=== PATIENT | female | born 1945 | race African-American/Black ===

== ENCOUNTER 2016-11-21 12:24 | Emergency (ER) | payer OTHER ==
[2016-11-21 12:35] VITALS: BP 165/84; PULSE 69; TEMP 98.3; BMI 32.1
[2016-11-21] MEDS ORDERED: ACETAMINOPHEN 500 MG TABLET (FP) PO ONE (13:19)
[2016-11-21] MEDS ORDERED: ACETAMINOPHEN 500 MG TABLET (FP) ONE (13:21)
--- NOTE | 2016-11-21 14:00 | PDOC ---
History of Present Illness - General Chief Complaint: Injury Stated Complaint: FALL/ RT KNEE PAIN Time Seen by Provider: 11/21/16 12:58 History Source: Patient Exam Limitations: No Limitations - History of Present Illness Initial Comments: 11/21/16 13:57 71 yr female tripped going into [facility] landed on her right knee. Pt taking ASA and plavix. No dizzyness or head trauma. Loss of Consciousness: no loss of consciousness Past History - Past Medical History Allergies/Adverse Reactions: Allergies Allergy/AdvReac Type Severity Reaction Status Date / Time No Known Drug Allergies Allergy Mild Verified 11/21/16 12:35 Home Medications: Ambulatory Orders Aspirin [ASA -] 81 mg PO HS 10/16/15 Cholecalciferol (Vitamin D3) [Vitamin D3] 1,000 unit PO BID 10/16/15 Clopidogrel Bisulfate [Plavix -] 75 mg PO DAILY 10/16/15 Cyanocobalamin [Vitamin B12 -] 2,000 mcg PO AM 10/16/15 Duloxetine HCl [Cymbalta] 120 mg PO DAILY 10/16/15 Folic Acid 1 mg PO DAILY 10/16/15 Isosorbide Mononitrate [Imdur -] 30 mg PO DAILY 10/16/15 Non-Formulary 20 units SQ DAILY 10/16/15 Olmesartan/Hydrochlorothiazide [Benicar Hct 40-12.5 mg Tablet] 1 each PO DAILY 10/16/15 Phenobarbital 60 mg PO BID 10/16/15 Prednisone 10 mg PO DAILY 10/16/15 Ezetimibe [Zetia] 10 mg PO HS 05/12/16 Insulin Glargine,Hum.rec.anlog [Grehard Goddard] 20 unit SQ DAILY 05/12/16 Metformin HCl [Metformin HCl ER] 1,000 mg PO BID 05/13/16 Metoprolol Succinate [Toprol Xl -] 50 mg PO DAILY 05/13/16 Tramadol HCl 50 mg PO PRN PRN 05/13/16 Acetaminophen W/ Codeine #3 [Tylenol # 3 -] 1 - 2 tab PO Q6H PRN #12 tablet MDD 6 11/21/16 Phenytoin Na Extended [Dilantin -] 100 mg PO DAILY 11/21/16 Anemia: Yes (YEARS AGO) Asthma: No Cancer: No Cardiac Disorders: Yes CVA: No COPD: No CHF: No Dementia: No Diabetes: Yes GI Disorders: No Disorders: No HTN: Yes Hypercholesterolemia: Yes Liver Disease: No Seizures: Yes Thyroid Disease: No Other medical history: POLYMYOCITIS - Surgical History Abdominal Surgery: No Appendectomy: No Cardiac Surgery: Yes (CABG X5 2001,1 STENT 2004) Cholecystectomy: No Lung Surgery: No Neurologic Surgery: No Orthopedic Surgery: Yes (2008 RIGHT SHOULDER FX-IMMOBILIZED) - Psycho/Social/Smoking Cessation Hx Anxiety: No Suicidal Ideation: No Smoking History: Never smoked Have you smoked in the past 12 months: No If you are a former smoker, when did you quit?: 2002 Hx Alcohol Use: No Drug/Substance Use Hx: No Substance Use Type: None Hx Substance Use Treatment: No *Physical Exam - Vital Signs Last Vital Signs Temp Pulse Resp BP Pulse Ox 98.3 F 69 18 165/84 96 11/21/16 12:31 11/21/16 12:31 11/21/16 12:31 11/21/16 12:31 11/21/16 12:31 - Physical Exam General Appearance: Yes: Nourished, Appropriately Dressed HEENT: positive: EOMI, ADAIR Respiratory/Chest: positive: Lungs Clear, Normal Breath Sounds Cardiovascular: positive: Regular Rhythm, Regular Rate Extremity: positive: Normal Capillary Refill, Normal Range of Motion (pt is able to raise right leg off bed more than 4 inches , pain with full extension ) , Tender, Swelling, Inflammation (right knee), Other (limited ROM due to pain and swelling, nv intact ) Integumentary: positive: Normal Color, Dry, Warm Neurologic: positive: Fully Oriented, Alert, Normal Mood/Affect, Normal Response , Motor Strength 5/5 Procedures - Splinting Pre-Made Type: knee immobilizer (right) ED Treatment Course - RADIOLOGY Radiology Studies Ordered: Category Date Time Status KNEE 3 POS-RIGHT [RAD] Stat Radiology 11/21/16 13:15 Completed - Medications Given in the ED: ED Medications Discontinued Medications Generic Name Dose Route Start Last Admin Trade Name Freq PRN Reason Stop Dose Admin Acetaminophen 1,000 mg 11/21/16 13:19 11/21/16 13:38 Tylenol - PO 11/21/16 13:20 1,000 mg ONCE ONE Administration Medical Decision Making - Medical Decision Making 11/21/16 13:59 cc: trip and fall landed on right knee swelling, tenderness ice pack applied and tylenol given (pt took aleve prior to arrival) 11/21/16 14:34 patellar fracture noted with joint effusion non displaced pt placed in knee immobilizer at full extension pt and her have a hove around wheelchair at home that she will use. they also have no steps that pt has to use. pt will follow with her orthopedist she will call tomorrow and see him in 1-3 days pain meds sent to pharmacy I have given explicit verbal instructions for follow up. pt and her understand the plan of care and agree. *DC/Admit/Observation/Transfer Diagnosis at time of Disposition: Patellar fracture Qualifiers: Encounter type: initial encounter Fracture type: closed Fracture morphology: unspecified fracture morphology Fracture alignment: nondisplaced Laterality: right Qualified Code(s): S82.001A - Unspecified fracture of right patella, initial encounter for closed fracture - Discharge Dispostion Disposition: HOME Condition at time of disposition: Fair - Prescriptions Prescriptions: Acetaminophen W/ Codeine #3 [Tylenol # 3 -] 1 - 2 tab PO Q6H PRN #12 tablet MDD 6 PRN Reason: Severe Pain - Referrals Referrals: Titus Hameed MD [Primary Care Provider] - Fidencio Johnson MD [Staff Physician] - - Patient Instructions Additional Instructions: call your orthopedist tomorrow morning to make appointment for this week keep the immobilizer on at all times elevate the leg above level of your heart and apply ice every 2hrs for 20 minutes while awake for the next 2-3 days keep pillows propped under the leg to help with pain and swelling take tylenol #3 for moderate to severe pain TAKE WITH FOOD MAY MAKE YOU NAUSEAS OR DIZZY DO NOT DRIVE DRINK ALCOHOL do not put weight on the right leg return to ER for any worsening symptoms
== END 2016-11-21 14:19 | disposition home or self-care (01) ==
LOC: JERFT 12:24
PROC: 2W3LXYZ Immobilization of Right Lower Extremity using Other Device (ICD-10-PCS; principal; 2016-11-21)
DX: S82.091A Other fracture of right patella, initial encounter for closed fracture (principal); M25.461 Effusion, right knee; I25.10 Atherosclerotic heart disease of native coronary artery without angina pectoris; I10 Essential (primary) hypertension; Z95.1 Presence of aortocoronary bypass graft; Z95.5 Presence of coronary angioplasty implant and graft; E11.9 Type 2 diabetes mellitus without complications; Z79.4 Long term (current) use of insulin; Z79.84 Long term (current) use of oral hypoglycemic drugs; E78.00 Pure hypercholesterolemia, unspecified; G40.909 Epilepsy, unspecified, not intractable, without status epilepticus
CPT/HCPCS: 29530; 73562-TC-RT; 99281-25

== ENCOUNTER 2016-12-16 12:24 | Inpatient (IN) | payer OTHER ==
[2016-12-16] MEDS ORDERED: SODIUM CHLORIDE 1,000 ML IV STA ×2 (12:52→15:24)
[2016-12-16] MEDS ORDERED: ONDANSETRON 4 MG/2 ML VIAL IVPUSH ONE (12:52)
--- NOTE | 2016-12-16 13:00 | PDOC ---
History of Present Illness - General Chief Complaint: Nausea/Vomiting Stated Complaint: Nausea/Vomiting Time Seen by Provider: 12/16/16 12:34 History Source: Patient Exam Limitations: No Limitations - History of Present Illness Initial Comments: 12/16/16 12:53 71-year-old female presents to the ED with complaints of nausea vomiting and abdominal pain intermittently for the past 2 weeks. Patient states generalized abdominal pain which she describes a burning sensation. Patient also states has had some loose bowel movements in between which she describes as brown watery without blood. Patient states had urinary tract infection a few weeks ago and also recently sustained of right patellar fracture along with left elbow fracture which is currently in a splint for. Patient denies chest pain, shortness of breath, fever, chills, dysuria, or hematuria. Timing/Duration: reports: intermittent Quality: reports: moderate, burning Abdominal Pain Onset Location: reports: generalized abdomen Pain Radiation: reports: no radiation Activities at Onset: reports: none Aggravating Factors: improves with: None Alleviating Factors: improves with: None Past History - Travel Traveled outside of the country in the last 30 days: No Close contact w/someone who was outside of country & ill: No - Past Medical History Allergies/Adverse Reactions: Allergies Allergy/AdvReac Type Severity Reaction Status Date / Time No Known Drug Allergies Allergy Mild Verified 12/16/16 12:29 Home Medications: Ambulatory Orders Aspirin [ASA -] 81 mg PO HS 10/16/15 Cholecalciferol (Vitamin D3) [Vitamin D3] 1,000 unit PO BID 10/16/15 Clopidogrel Bisulfate [Plavix -] 75 mg PO DAILY 10/16/15 Cyanocobalamin [Vitamin B12 -] 2,000 mcg PO AM 10/16/15 Duloxetine HCl [Cymbalta] 120 mg PO DAILY 10/16/15 Folic Acid 1 mg PO DAILY 10/16/15 Isosorbide Mononitrate [Imdur -] 30 mg PO DAILY 10/16/15 Phenobarbital 60 mg PO BID 10/16/15 Ezetimibe [Zetia] 10 mg PO HS 05/12/16 Insulin Glargine,Hum.rec.anlog [Toujeo Solostar] 20 unit SQ DAILY 05/12/16 Metoprolol Succinate [Toprol XL -] 50 mg PO DAILY 05/13/16 Acetaminophen [Tylenol .Regular Strength -] 650 mg PO Q4H PRN #0 tablet Cephalexin [Keflex] 500 mg PO BID 2 Days 12/20/16 Enoxaparin [Lovenox -] 40 mg SQ DAILY syringe 12/20/16 Lactobacillus Acidophilus [Bacid -] 1 tab PO DAILY tab 12/20/16 Pantoprazole Sodium [Protonix -] 40 mg PO DAILY tab.ec 12/20/16 Phenytoin Na Extended [Dilantin -] 200 mg PO BID cap 12/20/16 Prednisone [Deltasone -] 15 mg PO DAILY tablet 12/20/16 Anemia: Yes (YEARS AGO) Asthma: No Cancer: No Cardiac Disorders: Yes CVA: No COPD: No CHF: No Dementia: No Diabetes: Yes GI Disorders: No Disorders: No HTN: Yes Hypercholesterolemia: Yes Liver Disease: No Seizures: Yes Thyroid Disease: No - Surgical History Abdominal Surgery: No Appendectomy: No Cardiac Surgery: Yes (CABG X5 2001,1 STENT 2004) Cholecystectomy: No Lung Surgery: No Neurologic Surgery: No Orthopedic Surgery: Yes (2007 RIGHT SHOULDER FX-IMMOBILIZED) - Psycho/Social/Smoking Cessation Hx Anxiety: No Suicidal Ideation: No Smoking History: Never smoked Have you smoked in the past 12 months: No If you are a former smoker, when did you quit?: 2002 Hx Alcohol Use: No Drug/Substance Use Hx: No Substance Use Type: None Hx Substance Use Treatment: No Patient Lives Alone: No Lives with/in: senior care (Rehabilitation \) Review of Systems - Review of Systems Able to Perform ROS?: Yes Constitutional: No: Symptoms Reported HEENTM: No: Symptoms Reported Respiratory: No: Symptoms reported Cardiac (ROS): No: Symptoms Reported ABD/GI: Yes: Diarrhea, Nausea, Vomiting, Abdominal cramping : No: Symptoms Reported Musculoskeletal: No: Symptoms Reported Integumentary: No: Symptoms Reported Neurological: No: Symptoms reported Endocrine: No: Symptoms Reported Hematologic/Lymphatic: No: Symptoms Reported *Physical Exam - Vital Signs Last Vital Signs Temp Pulse Resp BP Pulse Ox 98.0 F 75 18 117/69 12/16/16 12:30 12/16/16 12:30 12/16/16 12:30 12/16/16 12:30 - Physical Exam General Appearance: Yes: Nourished, Appropriately Dressed. No: Apparent Distress HEENT: positive: EOMI, ADAIR, Pharynx Normal. negative: Pale Conjunctivae Neck: positive: Supple Respiratory/Chest: positive: Lungs Clear, Normal Breath Sounds. negative: Respiratory Distress, Accessory Muscle Use Cardiovascular: positive: Regular Rhythm, Regular Rate. negative: Murmur Gastrointestinal/Abdominal: positive: Normal Bowel Sounds, Soft, Distended ( slightly), Tenderness (mild generalized). negative: Guarding, Rebound Musculoskeletal: negative: CVA Tenderness Extremity: positive: Normal Capillary Refill. negative: Normal Inspection ( patient with right knee immobilizer and long-arm splint to the left arm), Pedal Edema Integumentary: positive: Normal Color, Warm, Moist Neurologic: positive: Normal Mood/Affect Heart Score/ECG Review - History History: Slightly suspicious - Electrocardiogram EKG: Normal - Age Age: >/= 65 - Risk Factors Based on the list above the patient has:: 1-2 risk factors - Troponin Troponin: </= normal limit - Score Heart Score - Total: 3 - ECG Intrepretation Rhythm: Regular Rhythm (67.) ED Treatment Course - LABORATORY CBC & Chemistry Diagram: 12/20/16 05:35 12/20/16 05:35 - RADIOLOGY Radiology Studies Ordered: Category Date Time Status KUB (KID UR & BLAD) [RAD] Stat Radiology 12/16/16 12:52 Ordered Medical Decision Making - Medical Decision Making 12/16/16 13:04 Patient with recent UTI and fracture to the left elbow and right knee presenting today with nausea vomiting generalized abdominal pain and diarrhea. Patient concerning for electrolyte imbalance versus starvation ketoacidosis versus UTI. Patient ordered for labs, urine, x-ray, EKG fluids and Zofran 12/16/16 15:15 Unable to obtain a peripheral IV. A right IJ was placed and the patient using ultrasound guided technique by Dr. Steve Franco. 12/16/16 15:46 Laboratory Tests 12/16/16 14:05 Sodium 128 L Potassium 5.1 D Chloride 90 L D BUN 19 H D Creatinine 0.5 L Creat Clearance w eGFR > 60 Random Glucose 113 H Calcium 8.9 Magnesium 2.6 H Total Bilirubin 0.4 D AST 87 H D ALT 81 H Alkaline Phosphatase 184 H D Troponin I 0.03 Acetone, Qual Pending Patient ordered for second bag of normal saline 1 L. Patient also ordered for an elbow x-ray and removed the long arm splint 12/16/16 18:42 Laboratory Tests 12/16/16 12/16/16 12/16/16 14:05 15:30 17:09 WBC 12.0 H D Hgb 12.1 D Hct 37.4 D Plt Count 400 D Neutrophils % 51.9 D Sodium 128 L Potassium 5.1 D Chloride 90 L D Carbon Dioxide 22 Anion Gap 16 BUN 19 H D Creatinine 0.5 L Creat Clearance w eGFR > 60 Random Glucose 113 H Calcium 8.9 Magnesium 2.6 H AST 87 H D ALT 81 H Alkaline Phosphatase 184 H D CK-MB (CK-2) 6.525 H Urine Ketones Negative Urine Blood 1+ H Ur Leukocyte Esterase Trace H Acetone, Qual Pending Elbow xray showed a healing left olecranon fx. Pt will be placed back in a long arm splint . Patient will be admitted to Dr. Fernandez to [facility] and consult will be placed to orthopedist national sales trainer Dr. Velez. KUB had no significant findings except for retained stool. Urine cx sent. 12/21/16 07:32 *DC/Admit/Observation/Transfer Diagnosis at time of Disposition: Hyponatremia, Weakness Nausea & vomiting Qualifiers: Vomiting Intractability: intractable - Discharge Dispostion Condition at time of disposition: Good Admit: Yes - Prescriptions
[2016-12-16] MEDS ORDERED: ONDANSETRON 4 MG/2 ML VIAL ONE (13:09)
--- NOTE | 2016-12-16 13:37 | PDOC ---
*Physical Exam - Vital Signs Last Vital Signs Temp Pulse Resp BP Pulse Ox 98.0 F 75 18 117/69 12/16/16 12:30 12/16/16 12:30 12/16/16 12:30 12/16/16 12:30 ED Treatment Course - LABORATORY CBC & Chemistry Diagram: 12/20/16 05:35 12/20/16 05:35 Medical Decision Making - Medical Decision Making 12/16/16 13:37 Pt seen by the Advanced Practice Provider under my direct supervision Ancillary studies reviewed I agree with plan as outlined by the Advanced Practice Provider BETHANY Banegas *DC/Admit/Observation/Transfer Diagnosis at time of Disposition: Hyponatremia, Weakness, Nausea & vomiting - Discharge Dispostion Disposition: SNF FACILITY Condition at time of disposition: Good - Prescriptions
[2016-12-16 14:45] LABS: ALBUMIN 3.4 g/dl (3.4-5.0); ANION GAP 16 (8-16); BILIRUBIN,TOTAL 0.4 mg/dL (0.2-1.0); CALCIUM 8.9 mg/dL (8.5-10.1); CO2 22 mmol/L (21-32); COCKROFT - GAULT 103.4535; CREATININE 0.5 mg/dL (0.55-1.02); GLUCOSE,RANDOM 113 mg/dL (74-106); SGPT/ALT 81 U/L (12-78); TOT PROT 7.9 g/dl (6.4-8.2)
[2016-12-16 14:47] LABS: ALK PHOS 184 U/L (45-117); TROPONIN I 0.03 ng/ml (0.00-0.05)
[2016-12-16 14:50] LABS: MAGNESIUM 2.6 mg/dL (1.8-2.4); SGOT/AST 87 U/L (15-37)
--- NOTE | 2016-12-16 15:37 | EKG ---
Test Reason : Blood Pressure : / mmHG Vent. Rate : 079 BPM Atrial Rate : 079 BPM P-R Int : 130 ms QRS Dur : 088 ms QT Int : 388 ms P-R-T Axes : 041 011 079 degrees QTc Int : 444 ms NORMAL SINUS RHYTHM NONSPECIFIC ST AND T WAVE ABNORMALITY ABNORMAL ECG WHEN COMPARED WITH ECG OF 16-OCT-2015 17:15, NO SIGNIFICANT CHANGE WAS FOUND Confirmed by KEELEY CLARK MD ([id number]) on 12/16/2016 3:37:03 PM Referred By: Confirmed By:KEELEY CLARK MD
[2016-12-16 16:45] LABS: BASOPHIL 0.2 % (0-2.0); EOSINOPHIL 0.8 % (0-4.5); MCH 29.6 pg (25.7-33.7); MCHC 32.5 g/dl (32.0-36.0); MEAN PLT VOLUME 8.3 fl (7.5-11.1); NEUTROPHILS 51.9 % (42.8-82.8); PLATELET COUNT 400 K/MM3 (134-434); RDW 14.4 % (11.6-15.6)
[2016-12-16 18:02] LABS: URINE APPEARANCE SLCLOUDY; URINE BILIRUBIN NEGATIVE (NEGATIVE); URINE COLOR YELLOW; URINE GLUCOSE (UA) NEGATIVE (NEGATIVE); URINE KETONE NEGATIVE (NEGATIVE); URINE NITRITE NEGATIVE (NEGATIVE); URINE PROTEIN NEGATIVE (NEGATIVE); URINE UROBILINOGEN NEGATIVE E.U./dl (0.2-1.0)
[2016-12-16 18:29] LABS: URINE BLOOD 1+ (NEGATIVE); URINE LEUK ESTERASE TRACE (NEGATIVE)
[2016-12-16 18:31] LABS: URINE BACTERIA RARE /hpf (NONE SEEN); URINE RBC 1 /hpf (0-3); URINE WBC 3 /hpf (3-5)
[2016-12-16 18:43] LABS: ACETONE SERUM NEGATIVE (NEGATIVE)
[2016-12-16] MEDS ORDERED: ACETAMINOPHEN 325 MG TABLET (FP) ONE (20:48)
[2016-12-16 23:51] VITALS: BMI 29.2
[2016-12-17] MEDS: INSULIN DETEMIR 100 UNITS/ML MDV SQ SCH (06:30)
[2016-12-17] MEDS: CYANOCOBALAMIN 1,000 MCG TABLET (FP) PO SCH (06:32)
[2016-12-17 08:04] LABS: ALBUMIN 3.4 g/dl (3.4-5.0); ANION GAP 12 (8-16); BILIRUBIN,TOTAL 0.3 mg/dL (0.2-1.0); CALCIUM 8.7 mg/dL (8.5-10.1); CO2 26 mmol/L (21-32); COCKROFT - GAULT 107.1935; CREATININE 0.5 mg/dL (0.55-1.02); GLUCOSE,RANDOM 124 mg/dL (74-106); SGOT/AST 54 U/L (15-37); SGPT/ALT 63 U/L (12-78)
[2016-12-17 08:05] LABS: ALK PHOS 170 U/L (45-117)
[2016-12-17] MEDS ORDERED: PHENYTOIN NA EXTENDED 100 MG CAPSULE (FP) PO SCH (10:00)
[2016-12-17] MEDS ORDERED: ACETAMINOPHEN 325 MG TABLET (FP) PO ONE (10:16)
[2016-12-17] MEDS: DULoxetine HCL 30 MG CAPSULE.DR (FP) PO SCH (10:32)
[2016-12-17] MEDS: CLOPIDOGREL BISULFATE 75 MG TABLET (FP) PO SCH (10:33)
[2016-12-17] MEDS: FOLIC ACID 1 MG TABLET (FP) PO SCH (10:33)
[2016-12-17] MEDS: ISOSORBIDE MONONITRATE 30 MG TAB.SR.24H (FP) PO SCH (10:33)
[2016-12-17] MEDS: CHOLECALCIFEROL (VITAMIN D3) 1,000 UNIT TABLET (FP) PO SCH ×2 (10:33→21:30)
[2016-12-17] MEDS: METOPROLOL SUCCINATE 50 MG TAB.SR.24H (FP) PO SCH (10:33)
[2016-12-17] MEDS: PHENobarbital 30 MG TABLET PO SCH ×2 (10:34→21:31)
--- NOTE | 2016-12-17 11:16 | CON.ORTH ---
Consult Reason for Consultation:: left elbow fx, right patella fx - Past Medical History SNIPPER: Yes: Seizure, TIA (s/p CABG then a stent) Cardio/Vascular: Yes: CAD, HTN, Hyperlipdemia, [place] Musculoskeletal: Yes: Osteoarthritis Rheumatology: Yes: Other (polymyositis) Endocrine: Yes: Diabetes Mellitus, Other (s/p benign skin excision) - Past Surgical History Past Surgical History: Yes: CABG, - Alcohol/Substance Use Hx Alcohol Use: No - Smoking History Smoking history: Never smoked Have you smoked in the past 12 months: No If you are a former smoker, when did you quit?: 2002 - Social History Usual Living Arrangement: With Spouse ADL: Family Assistance Occupation: former teacher History of Recent Travel: No Home Medications - Allergies Allergies/Adverse Reactions: Allergies Allergy/AdvReac Type Severity Reaction Status Date / Time No Known Drug Allergies Allergy Mild Verified 12/16/16 12:29 - Home Medications Home Medications: Ambulatory Orders Aspirin [ASA -] 81 mg PO HS 10/16/15 Cholecalciferol (Vitamin D3) [Vitamin D3] 1,000 unit PO BID 10/16/15 Clopidogrel Bisulfate [Plavix -] 75 mg PO DAILY 10/16/15 Cyanocobalamin [Vitamin B12 -] 2,000 mcg PO AM 10/16/15 Duloxetine HCl [Cymbalta] 120 mg PO DAILY 10/16/15 Folic Acid 1 mg PO DAILY 10/16/15 Isosorbide Mononitrate [Imdur -] 30 mg PO DAILY 10/16/15 Non-Formulary 20 units SQ DAILY 10/16/15 Olmesartan/Hydrochlorothiazide [Benicar Hct 40-12.5 mg Tablet] 1 each PO DAILY 10/16/15 Phenobarbital 60 mg PO BID 10/16/15 Prednisone 10 mg PO DAILY 10/16/15 Ezetimibe [Zetia] 10 mg PO HS 05/12/16 Insulin Glargine,Hum.rec.anlog [Todomitila Solostar] 20 unit SQ DAILY 05/12/16 Metformin HCl [Metformin HCl ER] 1,000 mg PO BID 05/13/16 Metoprolol Succinate [Toprol Xl -] 50 mg PO DAILY 05/13/16 Tramadol HCl 50 mg PO PRN PRN 05/13/16 Acetaminophen W/ Codeine #3 [Tylenol # 3 -] 1 - 2 tab PO Q6H PRN #12 tablet MDD 6 11/21/16 Phenytoin Na Extended [Dilantin -] 100 mg PO DAILY 11/21/16 Family Disease History - Family Disease History Family Disease History: Diabetes: Mother, Heart Disease: Father (renal failure, alcoholic cirrhosis), Mother Physical Exam for Ortho Vital Signs: Vital Signs Temperature 98 F 12/17/16 05:53 Pulse Rate 78 12/17/16 05:53 Respiratory Rate 20 12/17/16 05:53 Blood Pressure 140/52 12/17/16 05:53 O2 Sat by Pulse Oximetry (%) 99 12/16/16 22:27 Labs: CBC, BMP 12/17/16 06:25 - Upper Extremity Elbow: Yes: Left, Limited ROM, Pain, Swelling, Tenderness, Other (splint intact , nvi) - Lower Extremity Knee: Yes: Right, Limited ROM, Pain, Swelling, Tenderness, Other (knee immobilizer intact, nvi) Imaging - Results X-ray: Report Reviewed, Image Reviewed Assessment/Plan 1-year-old female presents to the ED with complaints of nausea vomiting and abdominal pain intermittently for the past 2 weeks. Patient states generalized abdominal pain which she describes a burning sensation. Patient also states has had some loose bowel movements in between which she describes as brown watery without blood. Patient states had urinary tract infection a few weeks ago and also recently sustained of right patellar fracture along with left elbow fracture which is currently in a splint for. Patient denies chest pain, shortness of breath, fever, chills, dysuria, or hematuria. Has been followed by Dr. Johnson for patella fx a/p right patella fx, left olecranon fx Patella fx- keep knee immobilizer PWB PT eval left olecranon fx will treat conservatively keep splint intact ABBY TOLEDO d/w Dr. Velez
--- NOTE | 2016-12-17 11:46 | HP ---
Admitting History and Physical - Primary Care Physician PCP: Titus Hameed - Admission Chief Complaint: I was really sick History of Present Illness: Ms Dawson is a very pleasant 71 female who came in from SNF for intractable nausea and vomiting. She was recently admitted to the SNF for rehabilitation secondary to a fall with knee and arm fracture (conservative management). While there she noted that some of the patients were complaining of abdominal pain and nausea. Soon after that she developed nausea/vomiting/diarrhea. She says she was unable to eat or drink anything because it would come right up. She described her stool as soupy at first but then became clear liquid with small amounts of stool. She says her emesis looked like anything she ate or drank and did not have blood in it. She did not note blood in her stool or melena. She continued to worsen so came in for further analysis. She denies fevers, chills, lightheadedness, dizziness, passing out, chest pain, shortness of breath, abdominal pain, difficulty or pain on urination, or leg swelling. Currently she says she is feeling good and is without complaint. History Source: Patient Limitations to Obtaining History: No Limitations - Past Medical History [employer]: Yes: Seizure, TIA (s/p CABG then a stent) Cardiovascular: Yes: CAD, HTN, Hyperlipdemia, [place] Musculoskeletal: Yes: Osteoarthritis Rheumatology: Yes: Other (polymyositis) Endocrine: Yes: Diabetes Mellitus, Other (s/p benign skin excision) - Past Surgical History Past Surgical History: Yes: CABG, - Smoking History Smoking history: Never smoked Have you smoked in the past 12 months: No If you are a former smoker, when did you quit?: 2002 - Alcohol/Substance Use Hx Alcohol Use: No History of Substance Use: reports: None - Social History Usual Living Arrangement: Yes: With Spouse, Fpc ADL: Family Assistance Occupation: former teacher History of Recent Travel: No Home Medications - Allergies Allergies/Adverse Reactions: Allergies Allergy/AdvReac Type Severity Reaction Status Date / Time No Known Drug Allergies Allergy Mild Verified 12/16/16 12:29 - Home Medications Home Medications: Ambulatory Orders Aspirin [ASA -] 81 mg PO HS 10/16/15 Cholecalciferol (Vitamin D3) [Vitamin D3] 1,000 unit PO BID 10/16/15 Clopidogrel Bisulfate [Plavix -] 75 mg PO DAILY 10/16/15 Cyanocobalamin [Vitamin B12 -] 2,000 mcg PO AM 10/16/15 Duloxetine HCl [Cymbalta] 120 mg PO DAILY 10/16/15 Folic Acid 1 mg PO DAILY 10/16/15 Isosorbide Mononitrate [Imdur -] 30 mg PO DAILY 10/16/15 Non-Formulary 20 units SQ DAILY 10/16/15 Olmesartan/Hydrochlorothiazide [Benicar Hct 40-12.5 mg Tablet] 1 each PO DAILY 10/16/15 Phenobarbital 60 mg PO BID 10/16/15 Prednisone 10 mg PO DAILY 10/16/15 Ezetimibe [Zetia] 10 mg PO HS 05/12/16 Insulin Glargine,Hum.rec.anlog [Toujeo Solostar] 20 unit SQ DAILY 05/12/16 Metformin HCl [Metformin HCl ER] 1,000 mg PO BID 05/13/16 Metoprolol Succinate [Toprol Xl -] 50 mg PO DAILY 05/13/16 Tramadol HCl 50 mg PO PRN PRN 05/13/16 Acetaminophen W/ Codeine #3 [Tylenol # 3 -] 1 - 2 tab PO Q6H PRN #12 tablet MDD 6 11/21/16 Phenytoin Na Extended [Dilantin -] 100 mg PO DAILY 11/21/16 Family Disease History - Family Disease History Family Disease History: Diabetes: Mother, Heart Disease: Father (renal failure, alcoholic cirrhosis), Mother Review of Systems Findings/Remarks: Full review of systems obtained, as per HPI and otherwise negative Physical Examination Vital Signs: Vital Signs Temperature 98 F 12/17/16 05:53 Pulse Rate 78 12/17/16 05:53 Respiratory Rate 20 12/17/16 05:53 Blood Pressure 140/52 12/17/16 05:53 O2 Sat by Pulse Oximetry (%) 99 12/16/16 22:27 Constitutional: Yes: Well Nourished, No Distress, Calm Eyes: Yes: Conjunctiva Clear, EOM Intact HENT: Yes: Atraumatic, Normocephalic Cardiovascular: Yes: Regular Rate and Rhythm. No: Gallop, Murmur, Rub Respiratory: Yes: Regular, CTA Bilaterally. No: Rales, Rhonchi, Wheezes Gastrointestinal: Yes: Normal Bowel Sounds, Soft. No: Distention, Tenderness Extremities: Yes: WNL Edema: No Labs: CBC, BMP 12/17/16 06:25 Imaging - Results X-ray: Report Reviewed, Image Reviewed Problem List - Problems (1) Hyponatremia Assessment/Plan: -cause of nausea and vomiting -suspect patient had gastroenteritis that caused this and hyponatremia further exacerbated symptoms -resolved with IVF -feeling back to baseline -recheck in am Code(s): E87.1 - HYPO-OSMOLALITY AND HYPONATREMIA (2) Gastroenteritis Assessment/Plan: -cause of original nausea/vomiting/diarrhea -resolved -on diabetic diet, monitor if tolerates Code(s): K52.9 - NONINFECTIVE GASTROENTERITIS AND COLITIS, UNSPECIFIED (3) Diabetes mellitus Assessment/Plan: -continue levemir -diabetic diet -FSBS and SSI Code(s): E11.9 - TYPE 2 DIABETES MELLITUS WITHOUT COMPLICATIONS (4) Patellar fracture Assessment/Plan: -appreciate ortho assistance -continue PT -place on lovenox for DVT PPx Code(s): S82.009A - UNSP FRACTURE OF UNSP PATELLA, INIT FOR CLOS FX Qualifiers : Encounter type: initial encounter Fracture type: closed Fracture morphology: unspecified fracture morphology Fracture alignment: nondisplaced Laterality: right Qualified Code(s): S82.001A - Unspecified fracture of right patella, initial encounter for closed fracture (5) Seizure Assessment/Plan: -continue dilantin Code(s): R56.9 - UNSPECIFIED CONVULSIONS (6) Closed olecranon fracture Assessment/Plan: -conservative management per ortho -PT Code(s): S52.023A - DISP FX OF OLECRAN PRO W/O INTARTIC EXTN UNSP ULNA, INIT (7) Polymyositis Assessment/Plan: -continue low dose prednisone Code(s): M33.20 - POLYMYOSITIS, ORGAN INVOLVEMENT UNSPECIFIED
[2016-12-17] MEDS: ENOXAPARIN NA (PORCINE) 40 MG/0.4 ML DISP.SYRIN SQ SCH (13:28)
[2016-12-17] MEDS: predniSONE 10 MG TABLET (UD) PO SCH (13:28)
[2016-12-17] MEDS ORDERED: INSULIN (NOVOLOG) ASPART 100 UNITS/ML 10ML VIAL ONE (15:54)
[2016-12-17] MEDS: INSULIN (NOVOLOG) ASPART 100 UNITS/ML 10ML VIAL SQ SCH ×2 (16:01→21:27)
[2016-12-17] MEDS: ACETAMINOPHEN 325 MG TABLET (FP) PO PRN (18:22)
[2016-12-17] MEDS: ASPIRIN 81 MG CHEWABLE TABLETS PO SCH (21:30)
[2016-12-17] MEDS: PHENYTOIN NA EXTENDED 100 MG CAPSULE (FP) PO SCH (21:31)
[2016-12-17] MEDS: EZETIMIBE 10 MG TABLET (FP) PO SCH (21:32)
[2016-12-18] MEDS: INSULIN DETEMIR 100 UNITS/ML MDV SQ SCH (06:21)
[2016-12-18] MEDS: INSULIN (NOVOLOG) ASPART 100 UNITS/ML 10ML VIAL SQ SCH ×3 (06:21→16:41)
[2016-12-18] MEDS: CYANOCOBALAMIN 1,000 MCG TABLET (FP) PO SCH (06:23)
[2016-12-18 07:14] LABS: BASOPHIL 0.7 % (0-2.0); EOSINOPHIL 1.5 % (0-4.5); MCH 30.6 pg (25.7-33.7); MCHC 33.9 g/dl (32.0-36.0); MEAN CELL VOLUME 90.4 fl (80-96); MEAN PLT VOLUME 7.7 fl (7.5-11.1); NEUTROPHILS 46.6 % (42.8-82.8); PLATELET COUNT 295 K/MM3 (134-434); RDW 14.5 % (11.6-15.6); WHITE BLOOD COUNT 7.9 K/mm3 (4.0-10.0)
[2016-12-18 08:47] LABS: CALCIUM 8.8 mg/dL (8.5-10.1); COCKROFT - GAULT 107.1935; CREATININE 0.5 mg/dL (0.55-1.02); PHOSPHOROUS 3.6 mg/dL (2.5-4.9)
[2016-12-18] MEDS: PHENYTOIN NA EXTENDED 100 MG CAPSULE (FP) PO SCH ×2 (09:28→21:20)
[2016-12-18] MEDS: ENOXAPARIN NA (PORCINE) 40 MG/0.4 ML DISP.SYRIN SQ SCH (09:28)
[2016-12-18] MEDS: CHOLECALCIFEROL (VITAMIN D3) 1,000 UNIT TABLET (FP) PO SCH ×2 (09:29→21:19)
[2016-12-18] MEDS: ISOSORBIDE MONONITRATE 30 MG TAB.SR.24H (FP) PO SCH (09:29)
[2016-12-18] MEDS: PHENobarbital 30 MG TABLET PO SCH ×2 (09:29→21:19)
[2016-12-18] MEDS: predniSONE 10 MG TABLET (UD) PO SCH (09:29)
[2016-12-18] MEDS: FOLIC ACID 1 MG TABLET (FP) PO SCH (09:29)
[2016-12-18] MEDS: METOPROLOL SUCCINATE 50 MG TAB.SR.24H (FP) PO SCH (09:30)
[2016-12-18] MEDS: CLOPIDOGREL BISULFATE 75 MG TABLET (FP) PO SCH (09:30)
[2016-12-18] MEDS: DULoxetine HCL 30 MG CAPSULE.DR (FP) PO SCH (09:31)
--- NOTE | 2016-12-18 11:22 | PN ---
Progress Note, Physician Chief Complaint: Ms Dawson complains of slight nausea but no vomiting. No cp or sob. - Current Medication List Current Medications: Active Medications Acetaminophen (Tylenol -) 650 mg PO Q4H PRN PRN Reason: FEVER OR PAIN Last Admin: 12/17/16 18:22 Dose: 650 mg Aspirin (Asa -) 81 mg PO HS [facility] Last Admin: 12/17/16 21:30 Dose: 81 mg Cholecalciferol (Vitamin D3 -) 1,000 unit PO BID [facility] Last Admin: 12/18/16 09:29 Dose: 1,000 unit Clopidogrel Bisulfate (Plavix -) 75 mg PO DAILY [facility] Last Admin: 12/18/16 09:30 Dose: 75 mg Cyanocobalamin (Vitamin B12 -) 2,000 mcg PO AM [facility] Last Admin: 12/18/16 06:23 Dose: 2,000 mcg Duloxetine HCl (Cymbalta -) 120 mg PO DAILY [facility] Last Admin: 12/18/16 09:31 Dose: 120 mg Ezetimibe (Zetia -) 10 mg PO HS [facility] Last Admin: 12/17/16 21:32 Dose: 10 mg Enoxaparin Sodium (Lovenox -) 40 mg SQ DAILY [facility] Last Admin: 12/18/16 09:28 Dose: 40 mg Folic Acid (Folic Acid -) 1 mg PO DAILY [facility] Last Admin: 12/18/16 09:29 Dose: 1 mg Ceftriaxone Sodium 1 gm/ (Dextrose) 50 mls @ 100 mls/hr IVPB DAILY [facility] Insulin Aspart (Novolog Vial) 1 units SQ ACHS [facility] PRN Reason: Protocol Last Admin: 12/18/16 06:21 Dose: Not Given Insulin Detemir (Levemir Vial) 20 units SQ DAILY@0700 [facility] Last Admin: 12/18/16 06:21 Dose: Not Given Isosorbide Mononitrate (Imdur -) 30 mg PO DAILY [facility] Last Admin: 12/18/16 09:29 Dose: 30 mg Lactobacillus Acidophilus (Bacid -) 1 tab PO DAILY [facility] Metoprolol Succinate (Toprol Xl -) 50 mg PO DAILY [facility] Last Admin: 12/18/16 09:30 Dose: 50 mg Phenobarbital (Phenobarbital -) 60 mg PO BID [facility] Last Admin: 12/18/16 09:29 Dose: 60 mg Phenytoin Sodium (Dilantin -) 200 mg PO BID [facility] Last Admin: 12/18/16 09:28 Dose: 200 mg Prednisone (Deltasone -) 15 mg PO DAILY [facility] Last Admin: 12/18/16 09:29 Dose: 15 mg - Objective Vital Signs: Vital Signs Temperature 98.4 F 12/18/16 09:26 Pulse Rate 69 12/18/16 09:26 Respiratory Rate 18 12/18/16 09:26 Blood Pressure 122/52 12/18/16 09:26 O2 Sat by Pulse Oximetry (%) 99 12/17/16 22:00 Constitutional: Yes: Well Nourished, No Distress, Calm Cardiovascular: Yes: Regular Rate and Rhythm. No: Gallop, Murmur, Rub Respiratory: Yes: Regular, CTA Bilaterally. No: Rales, Rhonchi, Wheezes Gastrointestinal: Yes: Normal Bowel Sounds, Soft. No: Distention, Tenderness Extremities: Yes: WNL Edema: No Labs: CBC, BMP 12/18/16 06:00 12/18/16 06:00 Problem List - Problems (1) Hyponatremia Code(s): E87.1 - HYPO-OSMOLALITY AND HYPONATREMIA (2) Gastroenteritis Code(s): K52.9 - NONINFECTIVE GASTROENTERITIS AND COLITIS, UNSPECIFIED (3) Diabetes mellitus Code(s): E11.9 - TYPE 2 DIABETES MELLITUS WITHOUT COMPLICATIONS (4) Patellar fracture Code(s): S82.009A - UNSP FRACTURE OF UNSP PATELLA, INIT FOR CLOS FX Qualifiers : Encounter type: initial encounter Fracture type: closed Fracture morphology: unspecified fracture morphology Fracture alignment: nondisplaced Laterality: right Qualified Code(s): S82.001A - Unspecified fracture of right patella, initial encounter for closed fracture (5) Seizure Code(s): R56.9 - UNSPECIFIED CONVULSIONS (6) Closed olecranon fracture Code(s): S52.023A - DISP FX OF OLECRAN PRO W/O INTARTIC EXTN UNSP ULNA, INIT (7) Polymyositis Code(s): M33.20 - POLYMYOSITIS, ORGAN INVOLVEMENT UNSPECIFIED Assessment/Plan (1) Hyponatremia Assessment/Plan: -resolved Code(s): E87.1 - HYPO-OSMOLALITY AND HYPONATREMIA (2) Gastroenteritis Assessment/Plan: -slight nausea but tolerating diet -prn zofran Code(s): K52.9 - NONINFECTIVE GASTROENTERITIS AND COLITIS, UNSPECIFIED (3) Diabetes mellitus Assessment/Plan: -continue levemir -diabetic diet -FSBS and SSI Code(s): E11.9 - TYPE 2 DIABETES MELLITUS WITHOUT COMPLICATIONS (4) Patellar fracture Assessment/Plan: -appreciate ortho assistance -continue PT -placed on lovenox for DVT PPx Code(s): S82.009A - UNSP FRACTURE OF UNSP PATELLA, INIT FOR CLOS FX Qualifiers : Encounter type: initial encounter Fracture type: closed Fracture morphology: unspecified fracture morphology Fracture alignment: nondisplaced Laterality: right Qualified Code(s): S82.001A - Unspecified fracture of right patella, initial encounter for closed fracture (5) Seizure Assessment/Plan: -continue dilantin Code(s): R56.9 - UNSPECIFIED CONVULSIONS (6) Closed olecranon fracture Assessment/Plan: -conservative management per ortho -PT Code(s): S52.023A - DISP FX OF OLECRAN PRO W/O INTARTIC EXTN UNSP ULNA, INIT (7) Polymyositis Assessment/Plan: -continue low dose prednisone Code(s): M33.20 - POLYMYOSITIS, ORGAN INVOLVEMENT UNSPECIFIED
[2016-12-18] MEDS ORDERED: ONDANSETRON 4 MG/2 ML VIAL IVPUSH PRN (11:31)
[2016-12-18] MEDS: CEFTRIAXONE 50 ML IVPB SCH (11:46)
[2016-12-18] MEDS: LACTOBACILLUS ACIDOPHILUS 1 EACH TAB (FP) PO SCH (11:47)
[2016-12-18] MEDS: INSULIN SLIDING SCALE (NOVOLOG) 1 VIAL SQ SCH ×2 (16:40→21:20)
[2016-12-18] MEDS ORDERED: PT OWN MED DRAWER 7, Y5N ONE (20:47)
[2016-12-18] MEDS ORDERED: INSULIN (NOVOLOG) ASPART 100 UNITS/ML 10ML VIAL ONE (21:17)
[2016-12-18] MEDS: ASPIRIN 81 MG CHEWABLE TABLETS PO SCH (21:19)
[2016-12-18] MEDS: EZETIMIBE 10 MG TABLET (FP) PO SCH (21:20)
--- NOTE | 2016-12-18 22:16 | PN ---
Progress Note (short form) - Note Progress Note: SPLINTS IN PLACE AND PATIENT COMFORTABLE WILL FOLLOW
[2016-12-19] MEDS: INSULIN DETEMIR 100 UNITS/ML MDV SQ SCH (06:37)
[2016-12-19] MEDS: INSULIN SLIDING SCALE (NOVOLOG) 1 VIAL SQ SCH ×4 (06:37→21:17)
[2016-12-19] MEDS: CYANOCOBALAMIN 1,000 MCG TABLET (FP) PO SCH (06:38)
[2016-12-19 08:51] LABS: CALCIUM 9.2 mg/dL (8.5-10.1); COCKROFT - GAULT 107.1935; CREATININE 0.5 mg/dL (0.55-1.02)
[2016-12-19 08:55] LABS: BASOPHIL 0.7 % (0-2.0); EOSINOPHIL 1.8 % (0-4.5); MCH 30.9 pg (25.7-33.7); MCHC 33.3 g/dl (32.0-36.0); MEAN CELL VOLUME 92.6 fl (80-96); NEUTROPHILS 37.5 % (42.8-82.8); PLATELET COUNT 275 K/MM3 (134-434); RDW 15.3 % (11.6-15.6); WHITE BLOOD COUNT 6.9 K/mm3 (4.0-10.0)
[2016-12-19] MEDS: ENOXAPARIN NA (PORCINE) 40 MG/0.4 ML DISP.SYRIN SQ SCH (09:09)
[2016-12-19] MEDS: FOLIC ACID 1 MG TABLET (FP) PO SCH (09:10)
[2016-12-19] MEDS: ISOSORBIDE MONONITRATE 30 MG TAB.SR.24H (FP) PO SCH (09:10)
[2016-12-19] MEDS: LACTOBACILLUS ACIDOPHILUS 1 EACH TAB (FP) PO SCH (09:10)
[2016-12-19] MEDS: DULoxetine HCL 30 MG CAPSULE.DR (FP) PO SCH (09:10)
[2016-12-19] MEDS: PHENYTOIN NA EXTENDED 100 MG CAPSULE (FP) PO SCH ×2 (09:10→21:17)
[2016-12-19] MEDS: CHOLECALCIFEROL (VITAMIN D3) 1,000 UNIT TABLET (FP) PO SCH ×2 (09:10→21:17)
[2016-12-19] MEDS: PHENobarbital 30 MG TABLET PO SCH ×2 (09:11→21:17)
[2016-12-19] MEDS: METOPROLOL SUCCINATE 50 MG TAB.SR.24H (FP) PO SCH (09:11)
[2016-12-19] MEDS: predniSONE 10 MG TABLET (UD) PO SCH (09:11)
[2016-12-19] MEDS: CLOPIDOGREL BISULFATE 75 MG TABLET (FP) PO SCH (09:11)
[2016-12-19] MEDS: CEFTRIAXONE 50 ML IVPB SCH (09:47)
--- NOTE | 2016-12-19 11:47 | PN ---
Progress Note, Physician Chief Complaint: Ms Dawson complains of nausea but tolerating diet. No cp or sob. - Current Medication List Current Medications: Active Medications Acetaminophen (Tylenol -) 650 mg PO Q4H PRN PRN Reason: FEVER OR PAIN Last Admin: 12/17/16 18:22 Dose: 650 mg Aspirin (Asa -) 81 mg PO HS [facility] Last Admin: 12/18/16 21:19 Dose: 81 mg Cholecalciferol (Vitamin D3 -) 1,000 unit PO BID [facility] Last Admin: 12/19/16 09:10 Dose: 1,000 unit Clopidogrel Bisulfate (Plavix -) 75 mg PO DAILY [facility] Last Admin: 12/19/16 09:11 Dose: 75 mg Cyanocobalamin (Vitamin B12 -) 2,000 mcg PO AM [facility] Last Admin: 12/19/16 06:38 Dose: 2,000 mcg Duloxetine HCl (Cymbalta -) 120 mg PO DAILY [facility] Last Admin: 12/19/16 09:10 Dose: 120 mg Ezetimibe (Zetia -) 10 mg PO HS [facility] Last Admin: 12/18/16 21:20 Dose: 10 mg Enoxaparin Sodium (Lovenox -) 40 mg SQ DAILY [facility] Last Admin: 12/19/16 09:09 Dose: 40 mg Folic Acid (Folic Acid -) 1 mg PO DAILY [facility] Last Admin: 12/19/16 09:10 Dose: 1 mg Ceftriaxone Sodium (Rocephin 1gm Ivpb (Pre-Docked)) 50 mls @ 100 mls/hr IVPB DAILY [facility] Last Admin: 12/19/16 09:47 Dose: 100 mls/hr Insulin Aspart (Novolog Vial Sliding Scale -) 1 vial SQ ACHS [facility] PRN Reason: Protocol Last Admin: 12/19/16 11:19 Dose: Not Given Insulin Detemir (Levemir Vial) 20 units SQ DAILY@0700 [facility] Last Admin: 12/19/16 06:37 Dose: Not Given Isosorbide Mononitrate (Imdur -) 30 mg PO DAILY [facility] Last Admin: 12/19/16 09:10 Dose: 30 mg Lactobacillus Acidophilus (Bacid -) 1 tab PO DAILY [facility] Last Admin: 12/19/16 09:10 Dose: 1 tab Metoprolol Succinate (Toprol Xl -) 50 mg PO DAILY [facility] Last Admin: 12/19/16 09:11 Dose: 50 mg Ondansetron HCl (Zofran Injection) 4 mg IVPUSH Q6H PRN PRN Reason: NAUSEA AND/OR VOMITING Last Admin: 12/19/16 09:09 Dose: 4 mg Pantoprazole Sodium (Protonix -) 40 mg PO DAILY [facility] Phenobarbital (Phenobarbital -) 60 mg PO BID [facility] Last Admin: 12/19/16 09:11 Dose: 60 mg Phenytoin Sodium (Dilantin -) 200 mg PO BID [facility] Last Admin: 12/19/16 09:10 Dose: 200 mg Prednisone (Deltasone -) 15 mg PO DAILY [facility] Last Admin: 12/19/16 09:11 Dose: 15 mg - Objective Vital Signs: Vital Signs Temperature 98.2 F 12/19/16 09:15 Pulse Rate 64 12/19/16 09:15 Respiratory Rate 18 12/19/16 09:15 Blood Pressure 124/54 12/19/16 09:15 O2 Sat by Pulse Oximetry (%) 99 12/19/16 09:00 Constitutional: Yes: Well Nourished, No Distress, Calm Cardiovascular: Yes: Regular Rate and Rhythm. No: Gallop, Murmur, Rub Respiratory: Yes: Regular, CTA Bilaterally. No: Rales, Rhonchi, Wheezes Gastrointestinal: Yes: Normal Bowel Sounds, Soft. No: Distention, Tenderness Extremities: Yes: WNL Edema: No Labs: CBC, BMP 12/19/16 07:30 12/19/16 07:30 Problem List - Problems (1) Hyponatremia Code(s): E87.1 - HYPO-OSMOLALITY AND HYPONATREMIA (2) Gastroenteritis Code(s): K52.9 - NONINFECTIVE GASTROENTERITIS AND COLITIS, UNSPECIFIED (3) Diabetes mellitus Code(s): E11.9 - TYPE 2 DIABETES MELLITUS WITHOUT COMPLICATIONS (4) Patellar fracture Code(s): S82.009A - UNSP FRACTURE OF UNSP PATELLA, INIT FOR CLOS FX Qualifiers : Encounter type: initial encounter Fracture type: closed Fracture morphology: unspecified fracture morphology Fracture alignment: nondisplaced Laterality: right Qualified Code(s): S82.001A - Unspecified fracture of right patella, initial encounter for closed fracture (5) Seizure Code(s): R56.9 - UNSPECIFIED CONVULSIONS (6) Closed olecranon fracture Code(s): S52.023A - DISP FX OF OLECRAN PRO W/O INTARTIC EXTN UNSP ULNA, INIT (7) Polymyositis Code(s): M33.20 - POLYMYOSITIS, ORGAN INVOLVEMENT UNSPECIFIED (8) UTI (urinary tract infection) Code(s): N39.0 - URINARY TRACT INFECTION, SITE NOT SPECIFIED Qualifiers: Urinary tract infection type: acute cystitis Hematuria presence: without hematuria Qualified Code(s): N30.00 - Acute cystitis without hematuria Assessment/Plan (1) Hyponatremia Assessment/Plan: -resolved Code(s): E87.1 - HYPO-OSMOLALITY AND HYPONATREMIA (2) Gastroenteritis Assessment/Plan: -slight nausea but tolerating diet -prn zofran -will add protonix since on prednisone, aspirin, and plavix Code(s): K52.9 - NONINFECTIVE GASTROENTERITIS AND COLITIS, UNSPECIFIED (3) Diabetes mellitus Assessment/Plan: -continue levemir -diabetic diet -FSBS and SSI Code(s): E11.9 - TYPE 2 DIABETES MELLITUS WITHOUT COMPLICATIONS (4) Patellar fracture Assessment/Plan: -appreciate ortho assistance -continue PT -placed on lovenox for DVT PPx Code(s): S82.009A - UNSP FRACTURE OF UNSP PATELLA, INIT FOR CLOS FX Qualifiers : Encounter type: initial encounter Fracture type: closed Fracture morphology: unspecified fracture morphology Fracture alignment: nondisplaced Laterality: right Qualified Code(s): S82.001A - Unspecified fracture of right patella, initial encounter for closed fracture (5) Seizure Assessment/Plan: -continue dilantin Code(s): R56.9 - UNSPECIFIED CONVULSIONS (6) Closed olecranon fracture Assessment/Plan: -conservative management per ortho -PT Code(s): S52.023A - DISP FX OF OLECRAN PRO W/O INTARTIC EXTN UNSP ULNA, INIT (7) Polymyositis Assessment/Plan: -continue low dose prednisone Code(s): M33.20 - POLYMYOSITIS, ORGAN INVOLVEMENT UNSPECIFIED (8) UTI -e. coli -sensitive to cephalosporins -continue rocephin day 2 -can transition to oral cephalosporins on discharge
[2016-12-19] MEDS: PANTOPRAZOLE 40 MG TABLET (FP) PO SCH (12:02)
[2016-12-19] MEDS ORDERED: PT OWN MED DRAWER 7, Y5N ONE (20:55)
[2016-12-19] MEDS ORDERED: INSULIN (NOVOLOG) ASPART 100 UNITS/ML 10ML VIAL ONE (21:11)
[2016-12-19] MEDS: ASPIRIN 81 MG CHEWABLE TABLETS PO SCH (21:17)
[2016-12-19] MEDS: EZETIMIBE 10 MG TABLET (FP) PO SCH (21:55)
[2016-12-20] MEDS: ACETAMINOPHEN 325 MG TABLET (FP) PO PRN ×4 (05:52→21:30)
[2016-12-20] MEDS: INSULIN SLIDING SCALE (NOVOLOG) 1 VIAL SQ SCH ×4 (06:12→21:33)
[2016-12-20] MEDS: CYANOCOBALAMIN 1,000 MCG TABLET (FP) PO SCH (06:12)
[2016-12-20] MEDS: INSULIN DETEMIR 100 UNITS/ML MDV SQ SCH (06:12)
[2016-12-20 07:37] LABS: BASOPHIL 0.7 % (0-2.0); EOSINOPHIL 2.8 % (0-4.5); MCH 30.5 pg (25.7-33.7); MCHC 33.5 g/dl (32.0-36.0); NEUTROPHILS 38.1 % (42.8-82.8); PLATELET COUNT 251 K/MM3 (134-434); RDW 15.1 % (11.6-15.6); WHITE BLOOD COUNT 6.5 K/mm3 (4.0-10.0)
[2016-12-20 08:00] LABS: CALCIUM 8.9 mg/dL (8.5-10.1); COCKROFT - GAULT 133.994; CREATININE 0.4 mg/dL (0.55-1.02); MAGNESIUM 1.8 mg/dL (1.8-2.4); PHOSPHOROUS 4.6 mg/dL (2.5-4.9)
[2016-12-20] MEDS: CEFTRIAXONE 50 ML IVPB SCH (09:13)
[2016-12-20] MEDS: LACTOBACILLUS ACIDOPHILUS 1 EACH TAB (FP) PO SCH (09:24)
[2016-12-20] MEDS: CHOLECALCIFEROL (VITAMIN D3) 1,000 UNIT TABLET (FP) PO SCH ×2 (09:24→21:32)
[2016-12-20] MEDS: FOLIC ACID 1 MG TABLET (FP) PO SCH (09:24)
[2016-12-20] MEDS: METOPROLOL SUCCINATE 50 MG TAB.SR.24H (FP) PO SCH (09:24)
[2016-12-20] MEDS: ENOXAPARIN NA (PORCINE) 40 MG/0.4 ML DISP.SYRIN SQ SCH (09:24)
[2016-12-20] MEDS: CLOPIDOGREL BISULFATE 75 MG TABLET (FP) PO SCH (09:24)
[2016-12-20] MEDS: PHENobarbital 30 MG TABLET PO SCH ×2 (09:24→21:28)
[2016-12-20] MEDS: PANTOPRAZOLE 40 MG TABLET (FP) PO SCH (09:25)
[2016-12-20] MEDS: DULoxetine HCL 30 MG CAPSULE.DR (FP) PO SCH (09:25)
[2016-12-20] MEDS: PHENYTOIN NA EXTENDED 100 MG CAPSULE (FP) PO SCH ×2 (09:25→21:31)
[2016-12-20] MEDS: ISOSORBIDE MONONITRATE 30 MG TAB.SR.24H (FP) PO SCH (09:25)
[2016-12-20] MEDS: predniSONE 10 MG TABLET (UD) PO SCH (09:25)
--- NOTE | 2016-12-20 09:47 | PN ---
Progress Note (short form) - Note Progress Note: Ortho Pt seen and examined s/p left olecranon fx and right patella fx splint and immobilizer intact nvi a/p PT wbat with knee immobilizer dvt ppx pain control d/c planning
[2016-12-20] MEDS ORDERED: INSULIN (NOVOLOG) ASPART 100 UNITS/ML 10ML VIAL ONE (11:23)
--- NOTE | 2016-12-20 11:41 | PN ---
Progress Note, Physician Chief Complaint: Ms Dawson says she has pain in her knee and elbow, controlled with tylenol. Nausea has resolved. No cp or sob. - Current Medication List Current Medications: Active Medications Acetaminophen (Tylenol -) 650 mg PO Q4H PRN PRN Reason: FEVER OR PAIN Last Admin: 12/20/16 10:55 Dose: 650 mg Aspirin (Asa -) 81 mg PO HS [facility] Last Admin: 12/19/16 21:17 Dose: 81 mg Cholecalciferol (Vitamin D3 -) 1,000 unit PO BID [facility] Last Admin: 12/20/16 09:24 Dose: 1,000 unit Clopidogrel Bisulfate (Plavix -) 75 mg PO DAILY [facility] Last Admin: 12/20/16 09:24 Dose: 75 mg Cyanocobalamin (Vitamin B12 -) 2,000 mcg PO AM [facility] Last Admin: 12/20/16 06:12 Dose: 2,000 mcg Duloxetine HCl (Cymbalta -) 120 mg PO DAILY [facility] Last Admin: 12/20/16 09:25 Dose: 120 mg Ezetimibe (Zetia -) 10 mg PO HS [facility] Last Admin: 12/19/16 21:55 Dose: 10 mg Enoxaparin Sodium (Lovenox -) 40 mg SQ DAILY [facility] Last Admin: 12/20/16 09:24 Dose: 40 mg Folic Acid (Folic Acid -) 1 mg PO DAILY [facility] Last Admin: 12/20/16 09:24 Dose: 1 mg Ceftriaxone Sodium (Rocephin 1gm Ivpb (Pre-Docked)) 50 mls @ 100 mls/hr IVPB DAILY [facility] Last Admin: 12/20/16 09:13 Dose: 100 mls/hr Insulin Aspart (Novolog Vial Sliding Scale -) 1 vial SQ ACHS [facility] PRN Reason: Protocol Last Admin: 12/20/16 06:12 Dose: Not Given Insulin Detemir (Levemir Vial) 20 units SQ DAILY@0700 [facility] Last Admin: 12/20/16 06:12 Dose: Not Given Isosorbide Mononitrate (Imdur -) 30 mg PO DAILY [facility] Last Admin: 12/20/16 09:25 Dose: 30 mg Lactobacillus Acidophilus (Bacid -) 1 tab PO DAILY [facility] Last Admin: 12/20/16 09:24 Dose: 1 tab Metoprolol Succinate (Toprol Xl -) 50 mg PO DAILY [facility] Last Admin: 12/20/16 09:24 Dose: 50 mg Ondansetron HCl (Zofran Injection) 4 mg IVPUSH Q6H PRN PRN Reason: NAUSEA AND/OR VOMITING Last Admin: 12/19/16 09:09 Dose: 4 mg Pantoprazole Sodium (Protonix -) 40 mg PO DAILY [facility] Last Admin: 12/20/16 09:25 Dose: 40 mg Phenobarbital (Phenobarbital -) 60 mg PO BID [facility] Last Admin: 12/20/16 09:24 Dose: 60 mg Phenytoin Sodium (Dilantin -) 200 mg PO BID [facility] Last Admin: 12/20/16 09:25 Dose: 200 mg Prednisone (Deltasone -) 15 mg PO DAILY [facility] Last Admin: 12/20/16 09:25 Dose: 15 mg - Objective Vital Signs: Vital Signs Temperature 98.2 F 12/20/16 07:45 Pulse Rate 61 12/20/16 07:45 Respiratory Rate 18 12/20/16 07:45 Blood Pressure 110/60 12/20/16 07:45 O2 Sat by Pulse Oximetry (%) 99 12/19/16 20:34 Constitutional: Yes: Well Nourished, No Distress, Calm Cardiovascular: Yes: Regular Rate and Rhythm. No: Gallop, Murmur, Rub Respiratory: Yes: Regular, CTA Bilaterally. No: Rales, Rhonchi, Wheezes Gastrointestinal: Yes: Normal Bowel Sounds, Soft. No: Distention, Tenderness Extremities: Yes: WNL Edema: No Labs: CBC, BMP 12/20/16 05:35 12/20/16 05:35 Problem List - Problems (1) Hyponatremia Code(s): E87.1 - HYPO-OSMOLALITY AND HYPONATREMIA (2) Gastroenteritis Code(s): K52.9 - NONINFECTIVE GASTROENTERITIS AND COLITIS, UNSPECIFIED (3) Diabetes mellitus Code(s): E11.9 - TYPE 2 DIABETES MELLITUS WITHOUT COMPLICATIONS (4) Patellar fracture Code(s): S82.009A - UNSP FRACTURE OF UNSP PATELLA, INIT FOR CLOS FX Qualifiers : Encounter type: initial encounter Fracture type: closed Fracture morphology: unspecified fracture morphology Fracture alignment: nondisplaced Laterality: right Qualified Code(s): S82.001A - Unspecified fracture of right patella, initial encounter for closed fracture (5) Seizure Code(s): R56.9 - UNSPECIFIED CONVULSIONS (6) Closed olecranon fracture Code(s): S52.023A - DISP FX OF OLECRAN PRO W/O INTARTIC EXTN UNSP ULNA, INIT (7) Polymyositis Code(s): M33.20 - POLYMYOSITIS, ORGAN INVOLVEMENT UNSPECIFIED (8) UTI (urinary tract infection) Code(s): N39.0 - URINARY TRACT INFECTION, SITE NOT SPECIFIED Qualifiers: Urinary tract infection type: acute cystitis Hematuria presence: without hematuria Qualified Code(s): N30.00 - Acute cystitis without hematuria Assessment/Plan (1) Hyponatremia Assessment/Plan: -resolved Code(s): E87.1 - HYPO-OSMOLALITY AND HYPONATREMIA (2) Gastroenteritis Assessment/Plan: -resolved Code(s): K52.9 - NONINFECTIVE GASTROENTERITIS AND COLITIS, UNSPECIFIED (3) Diabetes mellitus Assessment/Plan: -continue levemir -diabetic diet -FSBS and SSI Code(s): E11.9 - TYPE 2 DIABETES MELLITUS WITHOUT COMPLICATIONS (4) Patellar fracture Assessment/Plan: -appreciate ortho assistance -continue PT -placed on lovenox for DVT PPx Code(s): S82.009A - UNSP FRACTURE OF UNSP PATELLA, INIT FOR CLOS FX Qualifiers : Encounter type: initial encounter Fracture type: closed Fracture morphology: unspecified fracture morphology Fracture alignment: nondisplaced Laterality: right Qualified Code(s): S82.001A - Unspecified fracture of right patella, initial encounter for closed fracture (5) Seizure Assessment/Plan: -continue dilantin Code(s): R56.9 - UNSPECIFIED CONVULSIONS (6) Closed olecranon fracture Assessment/Plan: -conservative management per ortho -PT Code(s): S52.023A - DISP FX OF OLECRAN PRO W/O INTARTIC EXTN UNSP ULNA, INIT (7) Polymyositis Assessment/Plan: -continue low dose prednisone Code(s): M33.20 - POLYMYOSITIS, ORGAN INVOLVEMENT UNSPECIFIED (8) UTI -e. coli -sensitive to cephalosporins -continue rocephin day 3 -change to keflex for 2 more days Dispo -ready for discharge, discharge ordered placed -await bed at [facility]
[2016-12-20] MEDS ORDERED: PT OWN MED DRAWER 7, Y5N ONE (21:22)
[2016-12-20] MEDS: EZETIMIBE 10 MG TABLET (FP) PO SCH (21:32)
[2016-12-20] MEDS: ASPIRIN 81 MG CHEWABLE TABLETS PO SCH (21:33)
[2016-12-21] MEDS: ACETAMINOPHEN 325 MG TABLET (FP) PO PRN (05:50)
[2016-12-21] MEDS: INSULIN SLIDING SCALE (NOVOLOG) 1 VIAL SQ SCH ×2 (06:06→11:28)
[2016-12-21] MEDS: CYANOCOBALAMIN 1,000 MCG TABLET (FP) PO SCH (06:06)
[2016-12-21] MEDS: INSULIN DETEMIR 100 UNITS/ML MDV SQ SCH (06:06)
[2016-12-21] MEDS ORDERED: INSULIN (NOVOLOG) ASPART 100 UNITS/ML 10ML VIAL ONE ×2 (06:50→11:18)
[2016-12-21] MEDS: PHENYTOIN NA EXTENDED 100 MG CAPSULE (FP) PO SCH (09:20)
[2016-12-21] MEDS: LACTOBACILLUS ACIDOPHILUS 1 EACH TAB (FP) PO SCH (09:20)
[2016-12-21] MEDS: ISOSORBIDE MONONITRATE 30 MG TAB.SR.24H (FP) PO SCH (09:20)
[2016-12-21] MEDS: PHENobarbital 30 MG TABLET PO SCH (09:21)
[2016-12-21] MEDS: METOPROLOL SUCCINATE 50 MG TAB.SR.24H (FP) PO SCH (09:21)
[2016-12-21] MEDS: DULoxetine HCL 30 MG CAPSULE.DR (FP) PO SCH (09:21)
[2016-12-21] MEDS: PANTOPRAZOLE 40 MG TABLET (FP) PO SCH (09:21)
[2016-12-21] MEDS: CLOPIDOGREL BISULFATE 75 MG TABLET (FP) PO SCH (09:21)
[2016-12-21] MEDS: ENOXAPARIN NA (PORCINE) 40 MG/0.4 ML DISP.SYRIN SQ SCH (09:21)
[2016-12-21] MEDS: CHOLECALCIFEROL (VITAMIN D3) 1,000 UNIT TABLET (FP) PO SCH (09:21)
[2016-12-21] MEDS: FOLIC ACID 1 MG TABLET (FP) PO SCH (09:21)
[2016-12-21] MEDS: predniSONE 10 MG TABLET (UD) PO SCH (09:22)
[2016-12-21] MEDS: CEFTRIAXONE 50 ML IVPB SCH (09:22)
[2016-12-21 13:45] VITALS: BP 119/70; PULSE 79; TEMP 98.8
--- NOTE | 2016-12-21 14:46 | PN ---
Progress Note, Physician Chief Complaint: Ms Dawson is without complaint. No cp, sob, n/v. Looking forward to going to rehab to regain her strength - Current Medication List Current Medications: Active Medications Acetaminophen (Tylenol -) 650 mg PO Q4H PRN PRN Reason: FEVER OR PAIN Last Admin: 12/21/16 05:50 Dose: 650 mg Aspirin (Asa -) 81 mg PO HS [facility] Last Admin: 12/20/16 21:33 Dose: 81 mg Cholecalciferol (Vitamin D3 -) 1,000 unit PO BID [facility] Last Admin: 12/21/16 09:21 Dose: 1,000 unit Clopidogrel Bisulfate (Plavix -) 75 mg PO DAILY [facility] Last Admin: 12/21/16 09:21 Dose: 75 mg Cyanocobalamin (Vitamin B12 -) 2,000 mcg PO AM [facility] Last Admin: 12/21/16 06:06 Dose: 2,000 mcg Duloxetine HCl (Cymbalta -) 120 mg PO DAILY [facility] Last Admin: 12/21/16 09:21 Dose: 120 mg Ezetimibe (Zetia -) 10 mg PO HS [facility] Last Admin: 12/20/16 21:32 Dose: 10 mg Enoxaparin Sodium (Lovenox -) 40 mg SQ DAILY [facility] Last Admin: 12/21/16 09:21 Dose: 40 mg Folic Acid (Folic Acid -) 1 mg PO DAILY [facility] Last Admin: 12/21/16 09:21 Dose: 1 mg Ceftriaxone Sodium (Rocephin 1gm Ivpb (Pre-Docked)) 50 mls @ 100 mls/hr IVPB DAILY [facility] Last Admin: 12/21/16 09:22 Dose: 100 mls/hr Insulin Aspart (Novolog Vial Sliding Scale -) 1 vial SQ ACHS [facility] PRN Reason: Protocol Last Admin: 12/21/16 11:28 Dose: 2 unit Insulin Detemir (Levemir Vial) 20 units SQ DAILY@0700 [facility] Last Admin: 12/21/16 06:06 Dose: Not Given Isosorbide Mononitrate (Imdur -) 30 mg PO DAILY [facility] Last Admin: 12/21/16 09:20 Dose: 30 mg Lactobacillus Acidophilus (Bacid -) 1 tab PO DAILY [facility] Last Admin: 12/21/16 09:20 Dose: 1 tab Metoprolol Succinate (Toprol Xl -) 50 mg PO DAILY [facility] Last Admin: 12/21/16 09:21 Dose: 50 mg Ondansetron HCl (Zofran Injection) 4 mg IVPUSH Q6H PRN PRN Reason: NAUSEA AND/OR VOMITING Last Admin: 12/19/16 09:09 Dose: 4 mg Pantoprazole Sodium (Protonix -) 40 mg PO DAILY [facility] Last Admin: 12/21/16 09:21 Dose: 40 mg Phenobarbital (Phenobarbital -) 60 mg PO BID [facility] Last Admin: 12/21/16 09:21 Dose: 60 mg Phenytoin Sodium (Dilantin -) 200 mg PO BID [facility] Last Admin: 12/21/16 09:20 Dose: 200 mg Prednisone (Deltasone -) 15 mg PO DAILY [facility] Last Admin: 12/21/16 09:22 Dose: 15 mg - Objective Vital Signs: Vital Signs Temperature 98.8 F 12/21/16 13:44 Pulse Rate 79 12/21/16 13:44 Respiratory Rate 18 12/21/16 09:26 Blood Pressure 119/70 12/21/16 13:44 O2 Sat by Pulse Oximetry (%) 99 12/21/16 09:00 Constitutional: Yes: Well Nourished, No Distress, Calm Cardiovascular: Yes: Regular Rate and Rhythm. No: Gallop, Murmur, Rub Respiratory: Yes: Regular, CTA Bilaterally. No: Rales, Rhonchi, Wheezes Gastrointestinal: Yes: Normal Bowel Sounds, Soft. No: Distention, Tenderness Extremities: Yes: WNL Edema: No Labs: CBC, BMP 12/20/16 05:35 12/20/16 05:35 Problem List - Problems (1) Hyponatremia Code(s): E87.1 - HYPO-OSMOLALITY AND HYPONATREMIA (2) Gastroenteritis Code(s): K52.9 - NONINFECTIVE GASTROENTERITIS AND COLITIS, UNSPECIFIED (3) Diabetes mellitus Code(s): E11.9 - TYPE 2 DIABETES MELLITUS WITHOUT COMPLICATIONS (4) Patellar fracture Code(s): S82.009A - UNSP FRACTURE OF UNSP PATELLA, INIT FOR CLOS FX Qualifiers : Encounter type: initial encounter Fracture type: closed Fracture morphology: unspecified fracture morphology Fracture alignment: nondisplaced Laterality: right Qualified Code(s): S82.001A - Unspecified fracture of right patella, initial encounter for closed fracture (5) Seizure Code(s): R56.9 - UNSPECIFIED CONVULSIONS (6) Closed olecranon fracture Code(s): S52.023A - DISP FX OF OLECRAN PRO W/O INTARTIC EXTN UNSP ULNA, INIT (7) Polymyositis Code(s): M33.20 - POLYMYOSITIS, ORGAN INVOLVEMENT UNSPECIFIED (8) UTI (urinary tract infection) Code(s): N39.0 - URINARY TRACT INFECTION, SITE NOT SPECIFIED Qualifiers: Urinary tract infection type: acute cystitis Hematuria presence: without hematuria Qualified Code(s): N30.00 - Acute cystitis without hematuria Assessment/Plan (1) Hyponatremia Assessment/Plan: -resolved Code(s): E87.1 - HYPO-OSMOLALITY AND HYPONATREMIA (2) Gastroenteritis Assessment/Plan: -resolved Code(s): K52.9 - NONINFECTIVE GASTROENTERITIS AND COLITIS, UNSPECIFIED (3) Diabetes mellitus Assessment/Plan: -continue levemir -diabetic diet -FSBS and SSI Code(s): E11.9 - TYPE 2 DIABETES MELLITUS WITHOUT COMPLICATIONS (4) Patellar fracture Assessment/Plan: -appreciate ortho assistance -continue PT -continue lovenox for DVT PPx Code(s): S82.009A - UNSP FRACTURE OF UNSP PATELLA, INIT FOR CLOS FX Qualifiers : Encounter type: initial encounter Fracture type: closed Fracture morphology: unspecified fracture morphology Fracture alignment: nondisplaced Laterality: right Qualified Code(s): S82.001A - Unspecified fracture of right patella, initial encounter for closed fracture (5) Seizure Assessment/Plan: -continue dilantin Code(s): R56.9 - UNSPECIFIED CONVULSIONS (6) Closed olecranon fracture Assessment/Plan: -conservative management per ortho -PT Code(s): S52.023A - DISP FX OF OLECRAN PRO W/O INTARTIC EXTN UNSP ULNA, INIT (7) Polymyositis Assessment/Plan: -continue low dose prednisone Code(s): M33.20 - POLYMYOSITIS, ORGAN INVOLVEMENT UNSPECIFIED (8) UTI -e. coli -sensitive to cephalosporins -continue rocephin day 4 -change to keflex on discharge, but may finish course here Dispo -ready for discharge, discharge ordered placed -await bed at [facility]
--- NOTE | 2016-12-21 14:52 | DS ---
Physical Examination Vital Signs: Vital Signs Temperature 98.8 F 12/21/16 13:44 Pulse Rate 79 12/21/16 13:44 Respiratory Rate 18 12/21/16 09:26 Blood Pressure 119/70 12/21/16 13:44 O2 Sat by Pulse Oximetry (%) 99 12/21/16 09:00 Findings/Remarks: refer to progress note from today for physical exam Labs: CBC, BMP 12/20/16 05:35 12/20/16 05:35 Discharge Summary Reason For Visit: HYPONATREMIA Current Active Problems Closed olecranon fracture (Acute) Gastroenteritis (Acute) Hyponatremia (Acute) Nausea & vomiting (Acute) Polymyositis (Acute) UTI (urinary tract infection) (Acute) Weakness (Acute) Hospital Course: (1) Hyponatremia Code(s): E87.1 - HYPO-OSMOLALITY AND HYPONATREMIA (2) Gastroenteritis Code(s): K52.9 - NONINFECTIVE GASTROENTERITIS AND COLITIS, UNSPECIFIED (3) Diabetes mellitus Code(s): E11.9 - TYPE 2 DIABETES MELLITUS WITHOUT COMPLICATIONS (4) Patellar fracture Code(s): S82.009A - UNSP FRACTURE OF UNSP PATELLA, INIT FOR CLOS FX Qualifiers : Encounter type: initial encounter Fracture type: closed Fracture morphology: unspecified fracture morphology Fracture alignment: nondisplaced Laterality: right Qualified Code(s): S82.001A - Unspecified fracture of right patella, initial encounter for closed fracture (5) Seizure Code(s): R56.9 - UNSPECIFIED CONVULSIONS (6) Closed olecranon fracture Code(s): S52.023A - DISP FX OF OLECRAN PRO W/O INTARTIC EXTN UNSP ULNA, INIT (7) Polymyositis Code(s): M33.20 - POLYMYOSITIS, ORGAN INVOLVEMENT UNSPECIFIED (8) UTI (urinary tract infection) Code(s): N39.0 - URINARY TRACT INFECTION, SITE NOT SPECIFIED Qualifiers: Urinary tract infection type: acute cystitis Hematuria presence: without hematuria Qualified Code(s): N30.00 - Acute cystitis without hematuria Mrs Dawson is a very pleasant 71 year old female who comes in with hyponatremia secondary to gastroenteritis which exacerbated her nausea and vomiting. She was admitted to the hospital and given IVF. Her hyponatremia resolved, however she still had dyspepsia. She is on chronic steroids and was started on protonix. Her dyspepsia resolved. She should remain on a PPI while on steroids. She was also found to have a UTI and was placed on rocephin. Her cultures came back positive and it was sensitive to cephalosporins. She is currently feeling much improved. She is safe for discharge to a SNF. She needs one more day of keflex. 31 minutes spent in preparation of this discharge Condition: Good - Instructions Diet, Activity, Other Instructions: diabetic diet. Up with assistance, further activity per PT at SNF Referrals: Titus Hameed MD [Primary Care Provider] - Hieu Velez MD [Staff Physician] - Disposition: RETIREMENT FACILITY - Home Medications Comprehensive Discharge Medication List: Ambulatory Orders Aspirin [ASA -] 81 mg PO HS 10/16/15 Cholecalciferol (Vitamin D3) [Vitamin D3] 1,000 unit PO BID 10/16/15 Clopidogrel Bisulfate [Plavix -] 75 mg PO DAILY 10/16/15 Cyanocobalamin [Vitamin B12 -] 2,000 mcg PO AM 10/16/15 Duloxetine HCl [Cymbalta] 120 mg PO DAILY 10/16/15 Folic Acid 1 mg PO DAILY 10/16/15 Isosorbide Mononitrate [Imdur -] 30 mg PO DAILY 10/16/15 Phenobarbital 60 mg PO BID 10/16/15 Ezetimibe [Zetia] 10 mg PO HS 05/12/16 Insulin Glargine,Hum.rec.anlog [Toujeo Solostar] 20 unit SQ DAILY 05/12/16 Metoprolol Succinate [Toprol XL -] 50 mg PO DAILY 05/13/16 Acetaminophen [Tylenol .Regular Strength -] 650 mg PO Q4H PRN #0 tablet Cephalexin [Keflex] 500 mg PO BID 2 Days 12/20/16 Enoxaparin [Lovenox -] 40 mg SQ DAILY syringe 12/20/16 Lactobacillus Acidophilus [Bacid -] 1 tab PO DAILY tab 12/20/16 Pantoprazole Sodium [Protonix -] 40 mg PO DAILY tab.ec 12/20/16 Phenytoin Na Extended [Dilantin -] 200 mg PO BID cap 12/20/16 Prednisone [Deltasone -] 15 mg PO DAILY tablet 12/20/16
== END 2016-12-21 16:33 | DRG 392 ==
LOC: JER 12:24 → JERBED 18:49 → J6S 21:40
PROVIDERS: ADMIT Internal Medicine; ATTEND Internal Medicine
DX: K52.9 Noninfective gastroenteritis and colitis, unspecified (principal); E87.1 Hypo-osmolality and hyponatremia; M33.20 Polymyositis, organ involvement unspecified; N39.0 Urinary tract infection, site not specified; S82.091A Other fracture of right patella, initial encounter for closed fracture; I25.10 Atherosclerotic heart disease of native coronary artery without angina pectoris; I10 Essential (primary) hypertension; E78.5 Hyperlipidemia, unspecified; I25.2 Old myocardial infarction; E11.9 Type 2 diabetes mellitus without complications; R56.9 Unspecified convulsions; B96.20 Unspecified Escherichia coli [E. coli] as the cause of diseases classified elsewhere; S52.022A Displaced fracture of olecranon process without intraarticular extension of left ulna, initial encounter for closed fracture; W18.39XA Other fall on same level, initial encounter; Y93.89 Activity, other specified; Y92.89 Other specified places as the place of occurrence of the external cause; Z95.5 Presence of coronary angioplasty implant and graft; Z95.1 Presence of aortocoronary bypass graft; Z86.73 Personal history of transient ischemic attack (TIA), and cerebral infarction without residual deficits
CPT/HCPCS: 36415; 73070-TC-LT; 74000-TC; 80048; 80053; 81003; 81015; 82009; 82436; 82533; 82550; 82553; 82977; 83735; 83930; 83935; 84100; 84133; 84300; 84484; 85025; 87086; 87186; 93005; 93010; 97116-GP; 97163; 99282-25

== ENCOUNTER 2017-02-17 16:04 | Emergency (ER) | payer OTHER ==
[2017-02-17 16:19] VITALS: BMI 30.7
--- NOTE | 2017-02-17 17:08 | PDOC ---
History of Present Illness - General Chief Complaint: Injury Stated Complaint: INJURY Time Seen by Provider: 02/17/17 16:33 History Source: Patient - History of Present Illness Initial Comments: 02/17/17 17:38 Pt. is a 72 y/o female PMH of HTN, polymyocitis, who presents to the ED c/o R perez pain. Pt. states that she fell down an escalator earlier this afternoon. Pt. states that she denied hitting her head, losing consciousness. Pt. states that she thought her shoe got caught in the escalator and she fell on her butt. As she was falling her R leg "got tucked" under her. She states she also has a small scrape on her L knee. She is able to bear weight on the leg. She did not take any pain medication prior to her arrival. Denies fevers, chills, nausea, vomiting, neck pain, headache, dizziness, numbness, tingling, weakness, chest pain and shortness of breath. Past History - Travel Traveled outside of the country in the last 30 days: No Close contact w/someone who was outside of country & ill: No - Past Medical History Allergies/Adverse Reactions: Allergies Allergy/AdvReac Type Severity Reaction Status Date / Time No Known Drug Allergies Allergy Mild Verified 02/17/17 16:19 Home Medications: Ambulatory Orders Aspirin [ASA -] 81 mg PO HS 10/16/15 Cholecalciferol (Vitamin D3) [Vitamin D3] 1,000 unit PO BID 10/16/15 Clopidogrel Bisulfate [Plavix -] 75 mg PO DAILY 10/16/15 Cyanocobalamin [Vitamin B12 -] 2,000 mcg PO AM 10/16/15 Duloxetine HCl [Cymbalta] 120 mg PO DAILY 10/16/15 Folic Acid 1 mg PO DAILY 10/16/15 Isosorbide Mononitrate [Imdur -] 30 mg PO DAILY 10/16/15 Phenobarbital 60 mg PO BID 10/16/15 Ezetimibe [Zetia] 10 mg PO HS 05/12/16 Insulin Glargine,Hum.rec.anlog [Todomitila Solostar] 20 unit SQ DAILY 05/12/16 Metoprolol Succinate [Toprol XL -] 50 mg PO DAILY 05/13/16 Acetaminophen [Tylenol .Regular Strength -] 650 mg PO Q4H PRN #0 tablet Cephalexin [Keflex] 500 mg PO BID 2 Days 12/20/16 Enoxaparin [Lovenox -] 40 mg SQ DAILY syringe 12/20/16 Lactobacillus Acidophilus [Bacid -] 1 tab PO DAILY tab 12/20/16 Pantoprazole Sodium [Protonix -] 40 mg PO DAILY tab.ec 12/20/16 Phenytoin Na Extended [Dilantin -] 200 mg PO BID cap 12/20/16 Prednisone [Deltasone -] 15 mg PO DAILY tablet 12/20/16 Tramadol HCl 50 mg PO Q6H PRN #20 tablet MDD 4 02/17/17 Anemia: Yes (YEARS AGO) Asthma: No Cancer: No Cardiac Disorders: Yes (stent, on Plavix) CVA: No COPD: No CHF: No Dementia: No Diabetes: Yes GI Disorders: No Disorders: No HTN: Yes Hypercholesterolemia: Yes Liver Disease: No Seizures: Yes Thyroid Disease: No Other medical history: polymyositis - Surgical History Abdominal Surgery: No Appendectomy: No Cardiac Surgery: Yes (CABG X5 2001,1 STENT 2004) Cholecystectomy: No Lung Surgery: No Neurologic Surgery: No Orthopedic Surgery: Yes (2007 RIGHT SHOULDER FX-IMMOBILIZED) - Psycho/Social/Smoking Cessation Hx Anxiety: No Suicidal Ideation: No Smoking History: Never smoked Have you smoked in the past 12 months: No If you are a former smoker, when did you quit?: 2002 Information on smoking cessation initiated: No Hx Alcohol Use: No Drug/Substance Use Hx: No Substance Use Type: None Hx Substance Use Treatment: No Review of Systems - Review of Systems Able to Perform ROS?: Yes Is the patient limited Barbadian proficient: No Constitutional: Yes: Fever. No: Chills, Weakness Respiratory: No: Cough, Shortness of Breath Cardiac (ROS): No: Chest Pain, Lightheadedness, Palpitations ABD/GI: No: Diarrhea, Nausea, Vomiting Musculoskeletal: Yes: Joint Pain (R knee and perez pain.), Neck Pain. No: Back Pain Integumentary: Yes: Bruising, Other (abrasion to L knee) Neurological: No: Headache, Numbness, Tingling, Weakness, Unsteady Gait All Other Systems: Reviewed and Negative *Physical Exam - Vital Signs Last Vital Signs Temp Pulse Resp BP Pulse Ox 98.1 F 78 18 139/73 98 02/17/17 16:17 02/17/17 16:17 02/17/17 16:17 02/17/17 16:17 02/17/17 16:17 - Physical Exam General Appearance: Yes: Nourished, Appropriately Dressed, Other (breathing easily on exam bed). No: Apparent Distress HEENT: positive: EOMI, ADAIR, Normal ENT Inspection, Normal Voice, Symmetrical, TMs Normal, Other (Normocephalic, atraumatic, no pain to palpation of the head. no step offs or crepitus felt. No victoria sign; no raccoon sign) Neck: positive: Trachea midline, Normal Thyroid, Supple. negative: Tender (No midline tenderness), Rigid, Lymphadenopathy (R), Lymphadenopathy (L) Respiratory/Chest: positive: Lungs Clear, Normal Breath Sounds. negative: Chest Tender, Respiratory Distress, Accessory Muscle Use Cardiovascular: positive: Regular Rhythm, Regular Rate, S1, S2 (present). negative: JVD, Murmur Vascular Pulses: Dorsalis-Pedis (R): 2+, Doralis-Pedis (L): 2+ Musculoskeletal: negative: Vertebral Tenderness (No midline tenderness) Extremity: positive: Normal Capillary Refill, Normal Range of Motion (pt. able to flex and extend the R extremity with pain), Tender (TTP over the R tibial tuberosity. ), Swelling (R perez). negative: Calf Tenderness, Erythema Integumentary: positive: Other (abrasion to L knee) Neurologic: positive: asset specialist II-XII NML intact, Fully Oriented, Alert, Normal Mood/ Affect, Normal Response, Motor Strength 5/5 Deep Tendon Reflexes: Knee (L): 2+, Knee (R): 2+ Medical Decision Making - Medical Decision Making 02/17/17 17:39 Pt is a 72 y/o female who presents to the ED after falling down an escalator d/ t mechanical trip and fall. Pt. has no midline tenderness, head is atraumatic and can recall all the events of the fall. Did not lose consciousness. Will defer CT head at this time. 1. X-ray R perez, L knee 2. Tylenol for pain 3. Re-evaluate 02/17/17 18:59 X-ray has been taken, but not read at this time. Questionable area on the R perez for avulsion fx. Will wait for official read. Sign out given to Yoel Souza NP. *DC/Admit/Observation/Transfer Diagnosis at time of Disposition: Perez injury Qualifiers: Qualified Code(s): S89.91XA - Unspecified injury of right lower leg, initial encounter - Prescriptions Prescriptions: Tramadol HCl 50 mg PO Q6H PRN #20 tablet MDD 4 PRN Reason: Pain - Referrals Referrals: Titus Hameed MD [Primary Care Provider] - Fidencio Johnson MD [Staff Physician] - - Patient Instructions Printed Discharge Instructions: DI for Knee Pain Additional Instructions: Use ice to relieve pain. Take Tramadol as prescribed. Call Dr. Johnson/Rosie for appointment within 3 days. Return to ED for increased pain, worsening swelling, fevers or any other concerns.
[2017-02-17] MEDS ORDERED: ACETAMINOPHEN 325 MG TABLET (FP) PO ONE ×2 (17:09→22:29)
[2017-02-17] MEDS ORDERED: ACETAMINOPHEN 325 MG TABLET (FP) ONE ×2 (17:14→22:54)
--- NOTE | 2017-02-17 20:56 | PDOC ---
*Physical Exam - Vital Signs Last Vital Signs Temp Pulse Resp BP Pulse Ox 98.1 F 78 18 139/73 98 02/17/17 16:17 02/17/17 16:17 02/17/17 16:17 02/17/17 16:17 02/17/17 16:17 - Physical Exam General Appearance: Yes: Appropriately Dressed. No: Apparent Distress Vascular Pulses: Dorsalis-Pedis (R): 2+, Doralis-Pedis (L): 2+ Musculoskeletal: positive: Decreased Range of Motion (flexion and extension of right knee) Extremity: positive: Normal Capillary Refill Integumentary: positive: Ecchymosis (inferior to right knee on the anterior side ) ED Treatment Course - Medications Given in the ED: ED Medications Discontinued Medications Generic Name Dose Route Start Last Admin Trade Name Freq PRN Reason Stop Dose Admin Acetaminophen 650 mg 02/17/17 17:09 02/17/17 17:21 Tylenol - PO 02/17/17 17:10 650 mg ONCE ONE Administration Medical Decision Making - Medical Decision Making 02/17/17 20:55 Received signout from MALCOLM Walter. Pt with right lower leg pain s/p fall on escalator. X-ray of the left knee, 2 views. The alignment is satisfactory without gross evidence of a fracture or dislocation. There is suggestion of a small suprapatellar joint effusion. Vascular calcifications and multiple surgical metallic clips are present anteriorly. Impression: See discussion above. No gross acute fracture or dislocation are identified. Correlate clinically to determine further evaluation. Reported By: Portia Avendano MD 02/17/17 1910 Ecchymosis present to anterior perez. Pt is able to bear weight. Will discharge with immobilizer and f/u with Dr. Johnson. *DC/Admit/Observation/Transfer Diagnosis at time of Disposition: Perez injury Qualifiers: Encounter type: initial encounter Laterality: right Qualified Code(s): S89.91XA - Unspecified injury of right lower leg, initial encounter - Discharge Dispostion Disposition: HOME Condition at time of disposition: Guarded Admit: No - Prescriptions Prescriptions: Tramadol HCl 50 mg PO Q6H PRN #20 tablet MDD 4 PRN Reason: Pain - Referrals Referrals: Titus Hameed MD [Primary Care Provider] - Fidencio Johnson MD [Staff Physician] - - Patient Instructions Printed Discharge Instructions: DI for Knee Pain Additional Instructions: Use ice to relieve pain. Take Tramadol as prescribed. Call Dr. Johnson/Rosie for appointment within 3 days. Return to ED for increased pain, worsening swelling, fevers or any other concerns.
[2017-02-17 21:46] VITALS: BP 135/71; PULSE 74; TEMP 98
[2017-02-17] MEDS ORDERED: ONDANSETRON *ODT* 4 MG TABLET SL ONE (22:29)
[2017-02-17] MEDS ORDERED: ONDANSETRON 8 MG TABLET (FP) PO ONE (22:55)
== END 2017-02-17 21:52 | disposition home or self-care (01) ==
LOC: JER 16:04
DX: S89.91XA Unspecified injury of right lower leg, initial encounter (principal); I10 Essential (primary) hypertension; M33.20 Polymyositis, organ involvement unspecified; E11.9 Type 2 diabetes mellitus without complications; E78.00 Pure hypercholesterolemia, unspecified; G40.909 Epilepsy, unspecified, not intractable, without status epilepticus; Z79.82 Long term (current) use of aspirin; Z86.2 Personal history of diseases of the blood and blood-forming organs and certain disorders involving the immune mechanism; Z95.5 Presence of coronary angioplasty implant and graft; Z95.1 Presence of aortocoronary bypass graft; Z79.01 Long term (current) use of anticoagulants
CPT/HCPCS: 73562-TC-LT; 73590-TC-RT; 99283-25

== ENCOUNTER → 2017-10-12 | Day surgery (SDC) | payer OTHER ==
[2017-10-03 11:18] VITALS: BMI 29.5
[~2017-10-12] MED LIST: BSS (NA/CA/MG/K) BALANCED SALT SOLUTION OPHTH SOLN 15 ML BOTTLE ONE; CARBACHOL 0.01% INTRA-OCULAR 1.5 ML VIAL ONE; LIDOCAINE 1% P/F 10 MG/ML VIAL ONE; MIDAZOLAM HCL 2 MG/2 ML SINGLE DOSE VIAL ONE; NEO/POLYMYX B SULF/DEXAMETH OPHTHALMIC 5ML BOTTLE ONE; TETRACAINE 0.5% OPHTH SOLN 2 ML BOTTLE ONE
[2017-10-12] MEDS: PHENYLEPHRINE 2.5% OPHTH SOLN 15 ML BOTTLE ONE ×3 (07:25→07:35)
[2017-10-12] MEDS: CIPROFLOXACIN 0.3% EYE DROPS 5 ML BOTTLE ONE ×3 (07:25→07:35)
[2017-10-12] MEDS: CYCLOPENTOLATE 2% OPHTH SOLN 2 ML BOTTLE ONE ×3 (07:25→07:35)
[2017-10-12] MEDS: TROPICAMIDE 1% OPHTH SOLN 15 ML BOTTLE ONE ×3 (07:25→07:35)
--- NOTE | 2017-10-12 11:36 | OP ---
DATE OF OPERATION: 10/12/2017 OPERATIVE PROCEDURE: Lens Phacoemulsification with Posterior Chamber Intraocular Lens Placement Left Eye PREOPERATIVE DIAGNOSIS: Visually Significant Cataract of Left Eye POSTOPERATIVE DIAGNOSIS: Visually Significant Cataract of Left Eye SURGEON: Alessio Latham M.D. ANESTHESIA: MAC ANESTHESIOLOGIST: PROCEDURE: The patient was brought to the operating room and placed under monitored anesthesia care by Anesthesia. A drop of Tetracaine was then placed over the left eye. The patient was then prepped and draped in the usual sterile manner. A speculum was then placed over the left eye. The eye was then well irrigated with copious amounts of BSS (balanced salt solution). The operating microscope was then moved into position. A paracentesis was performed using a 15 degree blade. At this point 0.5 mL of 1% preservative-free lidocaine was injected into the anterior chamber. Amvisc plus was then injected into the anterior chamber. A clear corneal incision was then formed using a 2.2 mm keratome. A capsulorrhexis was then performed in a continuous circular fashion beginning with a cystotome, completed with an Utratas forceps. Hydrodissection was then performed using BSS on a cannula. The phaco probe was then introduced through the corneal wound and the cataract was removed using the phaco chop technique. Approximately 3 seconds of absolute phaco time was used. The remaining cortex was then removed using irrigation and aspiration with an I/A probe. The capsule was then filled with regular Amvisc and the capsule was noted to be intact. A previously selected foldable posterior chamber intraocular lens was then injected into the capsule through the corneal wound using a lens injector. It was then dialed into position using a Sinskey hook. The Amvisc was then removed using irrigation and aspiration. Miostat was then injected through the paracentesis to constrict the pupil. The paracentesis and corneal wound were then hydrated and noted to be water tight. A drop of Maxitrol was then placed over the eye. The speculum was removed and clear shield was taped over the eye. The patient tolerated the procedure well and there were no surgical complications. The patient was asked to follow up in my office the next day. ALESSIO LATHAM M.D. [id number]
[2017-10-12 11:45] VITALS: TEMP 98.4
[2017-10-12 11:56] VITALS: BP 129/67; PULSE 76
== END | disposition home or self-care (01) ==
LOC: FASU 06:55
PROVIDERS: ATTEND Ophthalmology
PROC: 08RK3JZ Replacement of Left Lens with Synthetic Substitute, Percutaneous Approach (ICD-10-PCS; principal; 2017-10-12 09:13)
DX: H26.8 Other specified cataract (principal)
CPT/HCPCS: 82962

== ENCOUNTER 2017-12-07 07:11 | Day surgery (SDC) | payer OTHER ==
[2017-11-29 17:37] VITALS: BMI 29.5
[2017-12-07 07:52] VITALS: TEMP 97.8
[2017-12-07] MEDS: TROPICAMIDE 1% OPHTH SOLN 15 ML BOTTLE ONE ×3 (08:10→08:20)
[2017-12-07] MEDS: CIPROFLOXACIN 0.3% EYE DROPS 5 ML BOTTLE ONE ×3 (08:10→08:20)
[2017-12-07] MEDS: PHENYLEPHRINE 2.5% OPHTH SOLN 15 ML BOTTLE ONE ×3 (08:10→08:20)
[2017-12-07] MEDS: CYCLOPENTOLATE 2% OPHTH SOLN 2 ML BOTTLE ONE ×3 (08:10→08:20)
[2017-12-07 10:00] VITALS: BP 132/66; PULSE 69
--- NOTE | 2017-12-07 10:35 | OP ---
DATE OF OPERATION: 12/07/2017 OPERATIVE PROCEDURE: Lens phacoemulsification with posterior chamber intraocular lens placement, right eye. PREOPERATIVE DIAGNOSIS: Visually significant cataract of right eye. POSTOPERATIVE DIAGNOSIS: Visually significant cataract of right eye. SURGEON: Alessio Latham M.D. ANESTHESIA: MAC PROCEDURE: The patient was brought to the operating room and placed under monitored anesthesia care by Anesthesia. A drop of Tetracaine was then placed over the right eye. The patient was then prepped and draped in the usual sterile manner. A speculum was then placed over the right eye. The eye was then well irrigated with copious amounts of BSS (balanced salt solution). The operating microscope was then moved into position. A paracentesis was performed using a 15-degree blade. At this point 0.5 mL of 1% preservative free-lidocaine was injected into the anterior chamber. Amvisc plus was then injected into the anterior chamber. A clear corneal incision was then formed using a 2.2 mm keratome. A capsulorrhexis was then performed in a continuous circular fashion beginning with a cystotome completed with an Utratas forceps. Hydrodissection was then performed using BSS on a cannula. The phaco probe was then introduced through the corneal wound and the cataract was removed using the phaco chop technique. Approximately 3 seconds of absolute phaco time was used. The remaining cortex was then removed using irrigation and aspiration with an I/A probe. The capsule was then filled with regular Amvisc and the capsule was noted to be intact. A previously selected foldable posterior chamber intraocular lens was then injected into the capsule through the corneal wound using a lens injector. It was then dialed into position using a Sinskey hook. The Amvisc was then removed using irrigation and aspiration. Miostat was then injected through the paracentesis to constrict the pupil. The paracentesis and corneal wound were then hydrated and noted to be water tight. A drop of Maxitrol was then placed over the eye. The speculum was removed, and clear shield was taped over the eye. The patient tolerated the procedure well and there were no surgical complications. The patient was asked to follow up in my office the next day. ALESSIO LATHAM M.D. [id number]
== END 2017-12-07 10:30 | disposition home or self-care (01) ==
LOC: FASU 07:11
PROVIDERS: ATTEND Ophthalmology
PROC: 08RJ3JZ Replacement of Right Lens with Synthetic Substitute, Percutaneous Approach (ICD-10-PCS; principal; 2017-12-07 09:08)
DX: H26.8 Other specified cataract (principal)
CPT/HCPCS: 82962

== ENCOUNTER 2018-12-10 20:57 | Inpatient (IN) | payer OTHER | END 2018-12-13 17:40 | disposition home or self-care (01) | LOC: JERBED 12-11 02:04 → JER 20:57 → J4W 12-11 12:10 ==